=== PATIENT | female | born 1945 | race Caucasian/White ===

== ENCOUNTER 2024-01-14 23:45 | Inpatient (IN) | payer MEDICARE, SELFPAY ==
[2024-01-14 23:09] VITALS: BP 146/81
[2024-01-14 23:28] VITALS: BP 146/81; BMI 31.6
[2024-01-14 23:32] LABS: Hematocrit 18.9 % (37.0-47.0); Hemoglobin 5.6 g/dL (12.0-16.0); Mean Corp Hgb Conc. 29.6 g/dL (33.0-37.0); Mean Corpuscular Hgb 36.1 pg (27.0-31.0); Mean Corpuscular Volume 121.9 fL (81.0-99.0); Mean Platelet Volume 12.8 fL (7.4-10.4); Platelet Count 77 10^3/uL (130-400); Red Blood Cell Count 1.55 10^6/uL (4.20-5.40); Red Cell Dist. Width 19.4 % (11.5-14.5); White Blood Cell Count 1.9 10^3/uL (4.8-10.8)
[2024-01-14 23:48] LABS: ALT (SGPT) 14 U/L (0-35); AST (SGOT) 49 U/L (14-36); Albumin 3.7 g/dl (3.5-5.0); Alkaline Phosphatase 43 U/L (38-126); Blood Urea Nitrogen 19 mg/dl (7-17); Calcium 8.2 mg/dl (8.4-10.2); Carbon Dioxide 22 mmol/L (22-30); Chloride 110 mmol/L (98-107); Estimated Creatinine Clearance 50 ml/min; Glucose 90 mg/dl (70-99); Potassium 4.3 mmol/L (3.5-5.1); Sodium 138 mmol/L (135-145); Total Bilirubin 2.3 mg/dl (0.2-1.3); Total Protein 6.2 g/dl (6.3-8.2); eGFR > 60.00
--- NOTE | 2024-01-14 23:49 | HPS.HSE ---
Family Physician
-
Family Physician: Talat Del Angel DO
Chief Complaint
-
pancytopenia
History of Present Illness
78-year-old female past medical history of coronary artery disease status post CABG, moderate aortic insufficiency, hypertension, hypothyroidism, GERD, breast cancer status post radiation, presenting as a transfer from [facility] for
pancytopenia.
Patient was in her normal state of health and had routine blood work which showed pancytopenia and she was referred to the hospital. She went to [facility] but was transferred to [facility] because she follows with Dr. Champagne
due to history of breast cancer.
She denies any symptoms such as shortness of breath, chest pain, fatigue, dizziness, bruising. She does have hemorrhoidal bleeding at times which is well-controlled with laxative.
She denies smoking or alcohol use.
Medical History
Past Medical History
Past Medical History: Reports Other (coronary artery disease status post CABG, moderate aortic insufficiency, hypertension, hypothyroidism, GERD, breast cancer status post radiation)
Past Surgical History: Reports Other (Thyroidectomy, appendectomy, tonsillectomy, colon polyp removal, bilateral oophorectomy)
Social History
Tobacco: Non-smoker
Alcohol: None
Drug: None
Family History
Family History: Not pertinent
Allergies / Home Medications
Allergies reflects when Allergies were last updated in [employer].
Home Medications with original date entered in [employer]
Allergy/Medication List:
Allergies
Allergy/AdvReac Type Severity Reaction Status Date / Time
dipyridamole Allergy Mild Nausea / Verified 01/14/24 23:34
Vomiting
Home Medications
aspirin 81 mg chewable tablet 81 mg PO DAILY 04/16/16
atorvastatin 20 mg tablet 20 mg PO DAILY 04/16/16
metoprolol tartrate 25 mg tablet 12.5 mg PO BID 04/16/16
coenzyme Q10 100 mg capsule (Co Q-10) 100 mg PO DAILY 01/14/24
levothyroxine 100 mcg tablet 50 mcg PO LANDIS 01/14/24
levothyroxine 100 mcg tablet 100 mcg PO MOTUWETHFRSA 01/14/24
omeprazole 40 mg capsule,delayed release 40 mg PO HS 01/14/24
Review of Systems
-
History Source: Patient
A 12 point ROS was completed and negative except as noted: Yes
Constitutional: Reports No Symptoms
EENT: Reports No Symptoms
Respiratory: Reports No Symptoms
Cardiac: Reports No Symptoms
Abdomen/GI: Reports No Symptoms
: Reports No Symptoms
Musculoskeletal: Reports No Symptoms
Skin: Reports No Symptoms
Neurological: Reports No Symptoms
Endocrine: Reports No Symptoms
Hematologic/Lymphatic: Reports No Symptoms
Psych: Reports No Symptoms
Physical Exam
Vital Signs
Vital Signs
Temp Pulse Resp BP Pulse Ox
97.9 F 66 20 146/81 94
01/14/24 23:28 01/14/24 23:30 01/14/24 23:30 01/14/24 23:28 01/14/24 23:30
Physical Exam
General: Well Developed, Well Nourished and No Apparent Distress
HEENT: NormoCephalic, Moist mucous membranes and Atraumatic
Respiratory: Clear
Cardiac: S1/S2 and Regular Rhythm; No Murmur or Rub
GI: Soft, Non Tender, Non Distended and Normal Bowel Sounds; No Organomegaly
Rectal: Deferred by Provider
Musculoskeletal: No Clubbing, No Cyanosis and No Edema
Skin: No Rash
Neuro: Nonfocal/grossly intact
Laboratory Results
-
01/14/24 23:21
01/14/24 23:21
Laboratory Results
Total Bilirubin 2.3 mg/dl (0.2-1.3) H 01/14/24 23:21
AST 49 U/L (14-36) H 01/14/24 23:21
ALT 14 U/L (0-35) 01/14/24 23:21
Alkaline Phosphatase 43 U/L (38-126) 01/14/24 23:21
Data Reviewed
-
Lab Data: Labs Reviewed by me
Old Records: Reviewed
Impression/Plan
-
IMPRESSION:
PLAN:
# Asymptomatic pancytopenia likely due to underlying bone marrow process
-Hemoccult negative at [facility]
-White blood cell count of 1.8, hemoglobin of 5.8, platelets of 86 as per [facility] labs
-Repeat labs pending
-1 unit of blood as per hematology, ordered
-Will likely require bone marrow biopsy
History of hemorrhoids
Breast cancer status post radiation
Coronary artery disease status post CABG
-Continue aspirin, statin
Moderate aortic insufficiency
Essential hypertension
-Continue metoprolol
Hypothyroidism
-Continue levothyroxine
GERD
-Continue omeprazole
DNR/DNI
DVT prophylaxis�SCDs
Regular diet
--- NOTE | 2024-01-14 23:56 | EDRN ---
Patient ambulated into the restroom with use of cane, back in bed with lights turned down and put tv on for patient.
[2024-01-15] VITALS (13 sets, daily range): BP systolic 113–162; BP diastolic 48–72; BMI 29.5
[2024-01-15 00:24] LABS: % Monocytes 6.7 % (1.7-9.3); % Neutrophils 26.3 % (42.2-75.2); Absolute Lymphocytes 1.3 10^3/uL (1.2-3.4); Absolute Monocytes 0.1 10^3/uL (0.1-0.6); Absolute Neutrophils 0.5 10^3/uL (1.4-6.5); Anisocytosis 1+; Normal RBC Morphology No; Nucleated Red Blood Cells % 2.1 %
[2024-01-15 00:33] LABS: Hypochromasia 2+; Macrocytosis 2+
[2024-01-15 00:34] LABS: Basophilic Stippling Occasional; Ovalocytes 1+; Polychromasia 1+; Stomatocytes 1+; Target Cells 1+; Tear Drop Red Blood Cells Occasional
--- NOTE | 2024-01-15 03:44 | PTCARENOTE ---
Pt arrived to [facility] from ED on a stretcher at 0125. Pt ambulated to the balanced standing scale and to bed with a cane and assistance of 1. 1 unit of PRBC's will be transfused for a hemoglobin of 5.6. Pt oriented to call peng and room. Pt denies
pain.
--- NOTE | 2024-01-15 05:42 | PTCARENOTE ---
1 unit of PRBC's infused without incident (start 02:26, end 05:30). VSS.
[2024-01-15] MEDS: SYNTHROID 100 MCG PO (06:16)
--- NOTE | 2024-01-15 06:20 | CON.ONC ---
Impression
Impression
Asymptomatic pancytopenia
Macrocytosis
Breast cancer status post radiation
Coronary artery disease status post CABG
Plan
Plan
Transfuse to obtain HgB > 7.5.
B12/Fol normal - checked as outpt.
Needs BMBx. As policy is no inpt BMBx, will set up as outpt with close F/U Dr. Champagne shortly.
Suspect MDS based on time course and macrocytosis.
Await F/U CBC post transfusion (1 u PRBC). Discharge with outpt F/U.
Patient History
History of Present Illness
Family Physician: Talat Del Angel DO
CC: pancytopenia
HPI: 78-year-old female who was in her normal state of health and had routine blood work which showed pancytopenia and she was referred to the hospital. She went to [facility] but was transferred to [facility] because she follows
with mason Champagne due to history of breast cancer. She denies infectious, shortness of breath, chest pain, fatigue, dizziness, bruising or bleeding symptoms. Was noted to have pancytopenia on 01/2023 but canceled follow up and never rescheduled.
Poor historian.
Past-Medical/Surgical History
D
She denies smoking or alcohol use.
PMH: coronary artery disease status post CABG, moderate aortic insufficiency, hypertension, hypothyroidism, GERD, Stage I breast cancer status post radiation
PSH: Thyroidectomy, appendectomy, tonsillectomy, colon polyp removal, bilateral oophorectomy
Social History
Tobacco: Non-smoker
Alcohol: None
Drug: None
Family History
Family History: Not pertinent
Patient Medication
�Medication �Instructions �Recorded �Confirmed �Last Taken �Type
aspirin 81 mg chewable tablet 81 mg PO DAILY 04/16/16 01/14/24 01/14/24 History
atorvastatin 20 mg tablet 20 mg PO DAILY 04/16/16 01/14/24 01/13/24 History
metoprolol tartrate 25 mg tablet 12.5 mg PO BID 04/16/16 01/14/24 01/14/24 History
coenzyme Q10 100 mg capsule (Co 100 mg PO DAILY 01/14/24 01/14/24 01/14/24 History
Q-10)
levothyroxine 100 mcg tablet 50 mcg PO LANDIS 01/14/24 01/14/24 01/12/24 History
levothyroxine 100 mcg tablet 100 mcg PO MOTUWETHFRSA 01/14/24 01/14/24 01/14/24 History
omeprazole 40 mg capsule,delayed 40 mg PO HS 01/14/24 01/14/24 01/13/24 History
release
Active Medications
Generic Name Dose Route Start Last Admin
Trade Name Freq PRN Reason Stop Dose Admin
Aspirin 81 mg 01/15/24 08:00
Aspirin 81 Mg Chewable Tablet PO 02/12/24 07:59
DAILY VLADIMIR
Atorvastatin Calcium 20 mg 01/15/24 08:00
Atorvastatin (Lipitor) 20 Mg Tablet PO 02/12/24 07:59
DAILY VLADIMIR
Levothyroxine Sodium 50 mcg 01/19/24 06:00
Levothyroxine 50 Mcg Tablet PO 02/16/24 05:59
LANDIS@0600 VLADIMIR
Levothyroxine Sodium 100 mcg 01/15/24 06:00
Levothyroxine 100 Mcg Tablet PO 02/12/24 05:59
MoTuWeThFrSa@0600 VLADIMIR
Metoprolol Tartrate 12.5 mg 01/15/24 08:00
Metoprolol 12.5 Mg Regular Release Dose (1/2 Of 25 Mg Tablet) PO 02/12/24 07:59
BID VLADIMIR
Pantoprazole Sodium 40 mg 01/15/24 22:00
Pantoprazole 40 Mg Delayed Release Tablet PO 02/12/24 21:59
HS VLADIMIR
Sodium Chloride 0 flush 01/15/24 02:00
Sodium Chloride 0.9% (Flush) Syringe IV 02/12/24 01:59
PER PROTOCOL VLADIMIR
Physical Exam
-
General: Well Developed, No Apparent Distress and Comfortable
HEENT: Negative Jaundice
Cardiology: Normal Sinus Rhythm, S1 and S2
Pulmonary: Clear
GI: Soft and Normal Bowel Sounds
Extremities: No C/C/E
Neurology: Non Focal
Labs
Lab Results
WBC 1.9 10^3/uL (4.8-10.8) L* 01/14/24 23:21
RBC 1.55 10^6/uL (4.20-5.40) L 01/14/24 23:21
Hgb 5.6 g/dL (12.0-16.0) L* 01/14/24 23:21
Hct 18.9 % (37.0-47.0) L* 01/14/24 23:21
MCV 121.9 fL (81.0-99.0) H 01/14/24 23:21
MCH 36.1 pg (27.0-31.0) H 01/14/24 23:21
MCHC 29.6 g/dL (33.0-37.0) L 01/14/24 23:21
RDW 19.4 % (11.5-14.5) H 01/14/24 23:21
Plt Count 77 10^3/uL (130-400) L 01/14/24 23:21
MPV 12.8 fL (7.4-10.4) H 01/14/24 23:21
Abs Immat Gran (auto) 0.0 10^3/uL (0-0.05) 01/14/24 23:21
Absolute Neuts (auto) 0.5 10^3/uL (1.4-6.5) L* 01/14/24 23:21
Absolute Lymphs (auto) 1.3 10^3/uL (1.2-3.4) 01/14/24 23:21
Absolute Monos (auto) 0.1 10^3/uL (0.1-0.6) 01/14/24 23:21
Absolute Eos (auto) 0.0 10^3/uL (0-0.7) 01/14/24 23:21
Absolute Basos (auto) 0.0 10^3/uL (0-0.2) 01/14/24 23:21
Immature Gran % 1.0 % (0-0.5) H 01/14/24 23:21
Neutrophils % 26.3 % (42.2-75.2) L 01/14/24 23:21
Lymphocytes % 66.0 % (20.5-51.1) H 01/14/24 23:21
Monocytes % 6.7 % (1.7-9.3) 01/14/24 23:21
Eosinophils % 0.0 % (0-6) 01/14/24 23:21
Basophils % 0.0 % (0-2) 01/14/24 23:21
Creatinine 0.8 mg/dL (0.6-1.0) 01/14/24 23:21
Vital Signs
Vital Signs
Temp Pulse Resp BP Pulse Ox
98 F 69 18 155/54 96
01/15/24 05:30 01/15/24 05:30 01/15/24 05:30 01/15/24 05:30 01/15/24 02:45
[2024-01-15 07:06] LABS: Hematocrit 21.8 % (37.0-47.0); Hemoglobin 6.6 g/dL (12.0-16.0); Mean Corp Hgb Conc. 30.3 g/dL (33.0-37.0); Mean Corpuscular Volume 112.4 fL (81.0-99.0); Mean Platelet Volume 11.8 fL (7.4-10.4); Platelet Count 74 10^3/uL (130-400); Red Blood Cell Count 1.94 10^6/uL (4.20-5.40); Red Cell Dist. Width 24.5 % (11.5-14.5)
[2024-01-15 07:24] LABS: ALT (SGPT) 13 U/L (0-35); AST (SGOT) 30 U/L (14-36); Albumin 3.7 g/dl (3.5-5.0); Alkaline Phosphatase 49 U/L (38-126); Blood Urea Nitrogen 17 mg/dl (7-17); Calcium 8.4 mg/dl (8.4-10.2); Carbon Dioxide 25 mmol/L (22-30); Chloride 109 mmol/L (98-107); Estimated Creatinine Clearance 50 ml/min; Glucose 89 mg/dl (70-99); Potassium 3.8 mmol/L (3.5-5.1); Sodium 140 mmol/L (135-145); Total Bilirubin 2.7 mg/dl (0.2-1.3); eGFR > 60.00
[2024-01-15] MEDS: LIPITOR 20 MG PO (07:27)
[2024-01-15] MEDS: LOW STRENGTH ASPIRIN 81 MG PO (07:27)
[2024-01-15 07:29] LABS: % Immature Granulocytes 5.1 % (0-0.5); % Lymphocytes 63.6 % (20.5-51.1); % Monocytes 7.6 % (1.7-9.3); % Neutrophils 23.7 % (42.2-75.2); Absolute Immature Granulocytes 0.1 10^3/uL (0-0.05); Absolute Lymphocytes 1.3 10^3/uL (1.2-3.4); Absolute Monocytes 0.2 10^3/uL (0.1-0.6); Absolute Neutrophils 0.5 10^3/uL (1.4-6.5); Nucleated Red Blood Cells % 2.5 %
[2024-01-15] MEDS: LOPRESSOR 12.5 MG PO ×2 (07:30→19:21)
[2024-01-15 08:31] LABS: Folate > 20.0 ng/ml (2.76-20); Vitamin B12 > 1000 pg/ml (239-931)
--- NOTE | 2024-01-15 11:56 | CM ---
Reviewed the chart notes and spoke with the patient at the bedside. The patient is a transfer from [facility]. The patient resides alone in a first floor apartment with four steps to enter with hand rail. The patient reports
having a cane and shower rail. The patient reports no VN in past, but did go to the [facility] ([facility]) in the past. The patient confirmed her pharmacy of choice is the [facility]. continues to be
available to patient/family and is monitoring medical plan for needs at discharge.
Plan: Discharge to home when medically stable. No needs anticipated at this time.
--- NOTE | 2024-01-15 12:25 | W.PN.HOSP.TC ---
Today's Communication/Plan
-
Transfuse second unit PRBC
Repeat CBC in the afternoon
Encourage oral intake/nutrition
Assessment / Plan
Assessment / Plan
#Asymptomatic Pancytopenia -- high suspicion for myelodysplastic syndrome due to timing, macrocytosis
#Neutropenic -- ANC 500 x 2 days
#Transfusion dependent macrocytic anemia
-Initially presented to [facility] with WBC 1.8, hemoglobin 5.8, platelet 86; MCV elevated
-Repeat labs here after transfer were along the same magnitude of deficiency; Hemoccult negative
-After 1 unit of PRBC given in the ED; hemoglobin this morning was 6.6, MCV down from 121-112
-Additional unit of PBC ordered and running now, s/p 2 units PRBC in total today
-Has remained hemodynamically stable, without any obvious symptoms
Plan
-Repeat CBC in the afternoon, transfuse for hemoglobin goal >7.5
-Will continue to monitor CBC daily until stable
-Plan for outpatient bone marrow biopsy and cytogenetic studies
-Continue with neutropenic precautions, monitor for fevers
-Follow-up SPEP, serological studies
#Hyperbilirubinemia
-LFTs are stable/normalized, suspect this is secondary to red cell breakdown and MDS
-See above for more detail
#CAD s/p CABG
-Performed in 2002, ELSA and radial�OM1
-Home regimen includes beta-edwin, aspirin, statin
-No signs of coronary ischemia at this time
-Risks for CAD of grafts is high due to time from CABG
#Aortic stenosis
-No records on file, patient states she has known aortic stenosis
-Murmur sounds severe with late systolic peak, carotid up stroke nondelayed
-Will need to follow-up with cardiology after discharge for ongoing monitoring
#Essential hypertension
-Home medications include low-dose metoprolol tartrate
-No known history of hypertensive cardiovascular disease
-BP is adequate for hospital stay, will monitor while here
#Hypothyroid
-Unclear etiology, home regimen includes levothyroxine 50 mcg Sun, 100 mcg other days
-No signs or symptoms of thyroid irregularity on this admission
#GERD
-Chronic, well-controlled with daily PPI
-No known Meza's esophagus or erosive disease
-No red flag symptoms here
#History of hemorrhoids
-Hemoccult negative, denies rectal bleeding
#Breast cancer status post radiation
-Question if radiation could be contributing to MDS
CODE STATUS: DNR/DNI
DVT prophylaxis: SCDs
Diet: Regular diet, neutropenic
Anticipated Discharge: 24 - 48 hours
Subjective/Interval History
-
Date of Service: January 15, 2024
Seen and examined in the bed. No acute events, CBC showed hemoglobin 6.6 this morning after 1 unit of blood. Ordered a subsequent unit of blood for now, plan for CBC near 5 PM today to reassess.
She otherwise states she feels well, improved from time she first presented to the hospital. Denies any chest pain or shortness of breath. Denies fevers or chills.
Objective Data
-
Labs:
Laboratory Results
01/15/24 01/15/24
06:38 17:00
WBC 2.0 L* Pending
Hgb 6.6 L* Pending
Hct 21.8 L Pending
Plt Count 74 L Pending
Sodium 140
Potassium 3.8
Chloride 109 H
Carbon Dioxide 25
BUN 17
Creatinine 0.8
Glucose 89
Calcium 8.4
Total Bilirubin 2.7 H
AST 30
ALT 13
Alkaline Phosphatase 49
Vital Signs:
Vital Signs
Temp Pulse Resp BP Pulse Ox
98 F 67 14 159/57 97
01/15/24 12:00 01/15/24 12:00 01/15/24 12:00 01/15/24 12:00 01/15/24 12:00
I&O
01/14/24 01/15/24 01/16/24
06:59 06:59 06:59
Intake Total 730 / 730 500 / 500
Balance 730 / 730 500 / 500
Review of Systems
-
History Source: Patient
Constitutional: Reports No Appetite and Fatigue; Denies Fever, Night Sweats or Chills
Respiratory: Reports No Symptoms
Cardiac: Reports No Symptoms
Abdomen/GI: Reports No Symptoms; Denies Bloody Stools or Black Stools
Genitourinary: Reports No Symptoms
Musculoskeletal: Reports No Symptoms
Skin: Reports No Symptoms
Neuro: Reports No Symptoms
Endocrine: Reports No Symptoms
Hematologic / Lymphatic: Reports Bruising; Denies Bleeding
Physical Exam
-
General: Well Nourished, No Apparent Distress, Comfortable, Conversant and Other (Frail-appearing female)
HEENT: Normocephalic, Atraumatic and Moist Mucous Membranes
Respiratory: Clear to Auscultation and Non Labored Respirations
Cardiac: Regular Rhythm, S1/S2 and Murmur (Late peaking systolic across precordium); Negative Rub or Gallop
GI: Soft, Nontender, Nondistended and Normal Bowel Sounds
Musculoskeletal: No Clubbing, No Cyanosis and No Edema
Skin: Warm, Dry and Other (Ecchymoses along extremities, reduced skin turgor); Negative Rash
Neuro: AO x 3, Nonfocal/Grossly Intact and Central Nerve's Intact
Data Reviewed
-
Labs: Labs Reviewed by me and Discussed with Patient
[2024-01-15 12:47] LABS: Hepatitis C Antibody Negative (Negative)
[2024-01-15 17:26] LABS: Hematocrit 26.4 % (37.0-47.0); Hemoglobin 8.3 g/dL (12.0-16.0); Mean Corp Hgb Conc. 31.4 g/dL (33.0-37.0); Mean Corpuscular Hgb 33.3 pg (27.0-31.0); Mean Platelet Volume 12.1 fL (7.4-10.4); Platelet Count 70 10^3/uL (130-400); Red Blood Cell Count 2.49 10^6/uL (4.20-5.40); Red Cell Dist. Width 26.3 % (11.5-14.5); White Blood Cell Count 2.1 10^3/uL (4.8-10.8)
[2024-01-15] MEDS: PROTONIX 40 MG PO (22:12)
[2024-01-16 03:15] VITALS: BP 169/59
--- NOTE | 2024-01-16 04:03 | PTCARENOTE ---
ax3 poc discussed-hr irregular +1 ankle edema. 96% on room air lungs are clear. scattered bruising on arms noted.
[2024-01-16] MEDS: SYNTHROID 100 MCG PO (05:25)
[2024-01-16 07:04] VITALS: BP 159/53
[2024-01-16] MEDS: LIPITOR 20 MG PO (07:28)
[2024-01-16] MEDS: LOPRESSOR 12.5 MG PO (07:28)
[2024-01-16] MEDS: LOW STRENGTH ASPIRIN 81 MG PO (07:28)
[2024-01-16 08:49] LABS: Hematocrit 26.1 % (37.0-47.0); Hemoglobin 8.4 g/dL (12.0-16.0); Mean Corp Hgb Conc. 32.2 g/dL (33.0-37.0); Mean Corpuscular Hgb 34.1 pg (27.0-31.0); Mean Corpuscular Volume 106.1 fL (81.0-99.0); Mean Platelet Volume 12.5 fL (7.4-10.4); Platelet Count 66 10^3/uL (130-400); Red Blood Cell Count 2.46 10^6/uL (4.20-5.40); Red Cell Dist. Width 24.9 % (11.5-14.5); White Blood Cell Count 2.8 10^3/uL (4.8-10.8)
[2024-01-16 09:04] LABS: Blood Urea Nitrogen 19 mg/dl (7-17); Calcium 8.8 mg/dl (8.4-10.2); Carbon Dioxide 23 mmol/L (22-30); Chloride 107 mmol/L (98-107); Estimated Creatinine Clearance 50 ml/min; Glucose 86 mg/dl (70-99); Sodium 138 mmol/L (135-145); eGFR > 60.00
[2024-01-16 09:09] LABS: % Basophils 0.7 % (0-2); % Eosinophils 0.4 % (0-6); % Immature Granulocytes 5.4 % (0-0.5); % Lymphocytes 37.8 % (20.5-51.1); % Monocytes 10.8 % (1.7-9.3); % Neutrophils 44.9 % (42.2-75.2); Absolute Immature Granulocytes 0.2 10^3/uL (0-0.05); Absolute Lymphocytes 1.1 10^3/uL (1.2-3.4); Absolute Monocytes 0.3 10^3/uL (0.1-0.6); Absolute Neutrophils 1.3 10^3/uL (1.4-6.5); Nucleated Red Blood Cells % 2.2 %
--- NOTE | 2024-01-16 11:26 | W.PN.HOSP.TC ---
Today's Communication/Plan
-
Follow-up CBC
Discharge for outpatient bone marrow biopsy with hematology
Assessment / Plan
Assessment / Plan
#Asymptomatic Pancytopenia -- high suspicion for myelodysplastic syndrome due to timing, macrocytosis
#Neutropenic -- ANC 500 x 2 days
#Transfusion dependent macrocytic anemia
-Initially presented to [facility] with WBC 1.8, hemoglobin 5.8, platelet 86; MCV elevated
-Repeat labs here after transfer were along the same magnitude of deficiency; Hemoccult negative
-After 1 unit of PRBC given in the ED; hemoglobin this morning was 6.6, MCV down from 121-112
-Status post 2 units PRBC with adequate response, hemoglobin 8.4 x 2 following transfusion
-Has remained hemodynamically stable, without any obvious symptoms
-Plan to [facility] today for hematology follow-up and bone marrow biopsy with cytogenetic studies
#Hyperbilirubinemia
-LFTs are stable/normalized, suspect this is secondary to red cell breakdown and MDS
-See above for more detail
#CAD s/p CABG
-Performed in 2002, ELSA and Rosmery1
-Home regimen includes beta-edwin, aspirin, statin
-No signs of coronary ischemia at this time
-Risks for CAD of grafts is high due to time from CABG
#Aortic stenosis
-No records on file, patient states she has known aortic stenosis
-Murmur sounds severe with late systolic peak, carotid up stroke nondelayed
-Will need to follow-up with cardiology after discharge for ongoing monitoring
#Essential hypertension
-Home medications include low-dose metoprolol tartrate
-No known history of hypertensive cardiovascular disease
-BP is adequate for hospital stay, will monitor while here
#Hypothyroid
-Unclear etiology, home regimen includes levothyroxine 50 mcg Sun, 100 mcg other days
-No signs or symptoms of thyroid irregularity on this admission
#GERD
-Chronic, well-controlled with daily PPI
-No known Meza's esophagus or erosive disease
-No red flag symptoms here
#History of hemorrhoids
-Hemoccult negative, denies rectal bleeding
#Breast cancer status post radiation
-Question if radiation could be contributing to MDS
CODE STATUS: DNR/DNI
DVT prophylaxis: SCDs
Diet: Regular diet, neutropenic
Anticipated Discharge: Today
Subjective/Interval History
-
Date of Service: January 16, 2024
Seen and examined while sitting in the chair. Had just finished breakfast, states she feels well and wants to leave the hospital. Hemoglobin this morning returned at 8.4, stable from yesterday. She denies any chest pain, shortness of breath,
fevers or chills, nausea, vomiting, diarrhea, urinary issues, abnormal bleeding or bruising today.
Objective Data
-
Labs:
Laboratory Results
01/16/24
07:24
WBC 2.8 L
Hgb 8.4 L
Hct 26.1 L
Plt Count 66 L
Sodium 138
Potassium 4.0
Chloride 107
Carbon Dioxide 23
BUN 19 H
Creatinine 0.8
Glucose 86
Calcium 8.8
Vital Signs:
Vital Signs
Temp Pulse Resp BP Pulse Ox
97.6 F 69 14 159/53 96
01/16/24 07:04 01/16/24 07:28 01/16/24 07:04 01/16/24 07:28 01/16/24 07:04
I&O
01/15/24 01/16/24 01/17/24
06:59 06:59 06:59
Intake Total 730 / 730 1460 / 1460
Balance 730 / 730 1460 / 1460
Review of Systems
-
History Source: Patient
All other systems: Reviewed and negative
Physical Exam
-
General: Well Nourished, No Apparent Distress and Comfortable
HEENT: Normocephalic, Atraumatic, Moist Mucous Membranes and Anicteric
Respiratory: Clear to Auscultation and Non Labored Respirations
Cardiac: Regular Rhythm, S1/S2 and Murmur (3/6 ROBSON RUSB); Negative Rub or Gallop
GI: Soft, Nontender, Nondistended and Normal Bowel Sounds
Musculoskeletal: No Clubbing, No Cyanosis and No Edema
Skin: Warm, Dry and Other (Ecchymoses on the extremities); Negative Rash
Neuro: AO x 3, Nonfocal/Grossly Intact and Central Nerve's Intact
Hematologic / Lymphatic: No Lymphadenopathy
Data Reviewed
-
Labs: Labs Reviewed by me and Discussed with Patient
--- NOTE | 2024-01-16 11:33 | W.DCSUMMARY ---
Discharge Summary
Discharge Data
Date of Admission: 01/14/24
Date of Discharge: 01/16/24
-
Pending Results: No
Additional Pending Results:
To follow-up with hematology for bone marrow biopsy and cytogenetic analysis
Hospital Course
Presented to the hospital after outpatient labs showed new pancytopenia. Seen by hematology, suspicion for myelodysplastic syndrome in the context of macrocytosis and the progressive timeframe in which her blood counts dropped, with labs being near
normal 1 year prior. Recommended for outpatient bone marrow biopsy and cytogenetic studies. Was given 2 units PRBC while in the hospital with hemoglobin improvement from 5.8-8.4. Trended CBC to ensure stability, no signs of bleeding during
hospitalization. Discharged with follow-up scheduled with table games floor supervisor in office for bone marrow biopsy. Advised her to return to the ED if she developed any new bleeding or signs of fevers or chills. She was on neutropenic precautions throughout
hospitalization
Discharge Plan
-
Patient Disposition: Home (Routine Discharge)
Discharge Diagnosis/Procedures: Pancytopenia
Presumed myelodysplastic syndrome
Condition: Fair
Diet: No restrictions
Activity: No restrictions
Driving Restrictions: As prior to admission
Blood Work: Follow-up with hematology for repeat CBC
Others Tests: Bone marrow biopsy, cytogenetic analysis to be performed by table games floor supervisor
Activity Restrictions/Additional Instructions:
If you develop any dark black stools or signs of new bleeding (from the GI tract, urinary tract, elsewhere) call your PCP or go to the emergency department
If you develop fevers or signs of infection call table games floor supervisor or PCP immediately
Instructions: Myelodysplastic syndromes (MDS)
Referrals:
Talat Del Angel DO [Family Provider] -
Slim Champagne DO [Active] - in two to three days
Additional Discharge Medication Instructions: No medication changes made
Prescriptions:
Continued
atorvastatin 20 MG tablet
20 mg PO DAILY
aspirin 81 MG tablet,chewable
81 mg PO DAILY
metoprolol tartrate 25 MG tablet
12.5 mg PO BID
omeprazole 40 mg capsule,delayed release(DR/EC)
40 mg PO HS
levothyroxine 100 mcg tablet
50 mcg PO LANDIS
levothyroxine 100 mcg tablet
100 mcg PO MOTUWETHFRSA
coenzyme Q10 [Co Q-10] 100 mg Capsule
100 mg PO DAILY
Discharge Orders:
Discharge Patient (As Directed); Ordered 01/16/24
Ordered By: Severo Wood
Discharge Date and Time
Print Language: SINHALA
[2024-01-16 11:53] VITALS: BP 119/55
--- NOTE | 2024-01-16 15:10 | CM ---
met with patient who is stable for dc home with no needs.patient signed imm letter.family to transport home.
[2024-01-18 04:42] LABS: Albumin 3.53 g/dL (3.75-5.01); Alpha 1 Globulin 0.29 g/dL (0.19-0.46); Alpha 2 Globulin 0.54 g/dL (0.48-1.05); Free Kappa Light Chains,Quant 28.49 mg/L (3.30-19.40); IgA 209 mg/dL (68-408); IgG 779 mg/dL (768-1632); IgM 214 mg/dL (35-263); Immunofixation Electrophoresis IFE Done; Kappa/Lambda Fr Light Ratio 0.92 (0.26-1.65)
== END 2024-01-16 14:11 | disposition home or self-care (01) | DRG 812 ==
LOC: 2 SOUTH 23:45
PROVIDERS: Emergency Medicine; ADMITTING PHYSICIAN Hospitalist; ATTENDING PHYSICIAN Internal Medicine; FAMILY PHYSICIAN Student in an Organized Health Care Education/Training Program; OTHER PHYSICIAN Internal Medicine Hematology & Oncology
PROC: 30233N1 Transfusion of Nonautologous Red Blood Cells into Peripheral Vein, Percutaneous Approach (ICD-10-PCS; 2024-01-15)
DX: D46.9 Myelodysplastic syndrome, unspecified (principal); D61.818 Other pancytopenia; D75.89 Other specified diseases of blood and blood-forming organs; Z92.3 Personal history of irradiation; C50.919 Malignant neoplasm of unspecified site of unspecified female breast; I25.10 Atherosclerotic heart disease of native coronary artery without angina pectoris; Z95.1 Presence of aortocoronary bypass graft; I10 Essential (primary) hypertension; E89.0 Postprocedural hypothyroidism; K21.9 Gastro-esophageal reflux disease without esophagitis; Z66 Do not resuscitate
CPT/HCPCS: 80048; 80053; 82607; 82746; 82784; 83521; 84155; 84165; 85025; 85027; 86334; 86803; 86850; 86900; 86901; 86920; 87070; 99285; P9016

== ENCOUNTER 2024-04-10 19:47 | Inpatient (IN) | payer MEDICARE, OTHER, SELFPAY ==
[2024-04-10] VITALS (12 sets, daily range): BP systolic 104–143; BP diastolic 39–56; BMI 25.5
--- NOTE | 2024-04-10 14:28 | ED.GENMED ---
History of Present Illness
General
Chief Complaint: Dehydration Symptoms
Source: family
Exam Limitations: none
Time Seen by Provider: 04/10/24 13:56
Nursing documentation reviewed up to this point in time: agreed with
History of Present Illness
History of Present Illness:
78 yr. old female with history of ' blood cancer,' possible MDS, CAD hypertension hyperlipidemia sent by Dr Champagne for evaluation. Sister reports patient is very weak not eating lost over 30 pounds in the past month.
Daughter reports patient was hospitalized at [facility] several weeks ago her last chemo was also several weeks ago however presently she is in [facility]. They saw Dr. Champagne today.
Review of Systems
Review of Systems
Allergies reviewed?: Yes
Other source history: family
All Other Systems: ROS reviewed and negative except as documented in HPI and ROS
Constitutional: Reports weight loss and fatigue; Denies fever or chills
EENT: Reports no symptoms
Respiratory: Reports no symptoms; Denies trouble breathing
Cardiac: Reports no symptoms
ABD/GI: Reports anorexia
: Reports no symptoms
Musculoskeletal: Reports no symptoms
Skin: Reports no symptoms
Neurological: Reports no symptoms
Psychiatric: Reports no symptoms
Phy Exam
General Physical Exam
General Presentation: no apparent distress
General age: appears stated age
General Skin: warm and dry
General Habitus: elderly
General Mental: alert
General Hydration: dry mucous membranes
Cardiovascular Exam
Cardiovascular Exam: regular rate/rhythm, no murmur and normal peripheral pulses
Pulmonary Exam
Pulmonary Exam: lungs clear and no respiratory distress
Neurological Exam
Neurological Exam: alert
Musculoskeletal Exam
Musculoskeletal Exam: full ROM
Skin Exam
Skin Exam: normal color and warm/dry
Course
Orders/Labs/Results
Orders:
Orders
04/10/24 14:26
IV Insert/Care/Rem.- Treatment PRN
04/10/24 14:35
Basic Metabolic Panel Urgent
Complete Blood Count/With Diff Urgent
04/10/24 14:37
Straight cath- Treatment ONCE
04/10/24 14:43
UA Reflex to Culture [Urinalysis Reflex To Culture] Urgent
Date Specimen was Collected: 04/10/24
Time Specimen was Collected: 14:42
Urine Microscopic Reflex Cult Urgent
Urine Sodium Urgent
Date Specimen was Collected: 04/10/24
Time Specimen was Collected: 14:42
Comment: ADD ON
04/10/24 17:21
Add On- LAB Urgent
Tests Added?: urine sodium, serum sodium serum osmolality
04/10/24 17:24
0.9% Sodium Chloride 500 ml [Nss] 500 ml IV BOLUS
04/10/24 17:40
Electrocardiogram (*1) Stat
Reason for Study: Other
Other Reason for Exam: chest pain
EKG- Treatment ONCE
04/10/24 18:06
Lipase Urgent
Comment: ADD ON
Cyjey-Vupz-Lptemei Urgent
Comment: ADD ON
Potassium Urgent
Serum Osmolality Urgent
Comment: ADD ON
Sodium Urgent
Comment: ADD ON
04/10/24 18:59
Admit/Transfer Patient As Directed
Co-Sign Provider:
Level of Care: Inpatient admission
Assign to:: IMU- Intermediate Care
Physician / Group: Amado Cuevas
Diagnosis: Possible Symptomatic Hyponatremia
Reason for Hospitalization: Possible Symptomatic Hyponatremia
Expected length of stay greater than two midnights?: Yes
ELOS- Estimated Length of Stay in days: 2
I certify the patient meets the requirements for IP care: Yes
04/10/24 19:00
0.9% Sodium Chloride 1000 ml [Nss] 1,000 ml IV 60 mls/hr
PRN Pain Medication Management As Directed
May give lesser potent ordered pain med per pt: Yes
preference::
Protocol:: Medication orders for pain may be administered in a
manner that supports deferring to patient preference
when the pt is:
- Requesting an ordered lesser potent pain medication.
Least to most potent pain medications are defined
as: acetaminophen < NSAID < tramadol < opioids
(morphine, oxycodone, hydromorphone).
- Requesting a lesser dose of the same medication IF
ORDERED.
- Requesting a less intrusive route of administration
if both routes are prescribed by the provider (PO <
IV).
04/10/24 19:07
Code Status As Directed
Resuscitation Status: Full Code
04/10/24 19:14
Add On- LAB Routine
Tests Added?: LFTs and Lipase
Records Request [Obtain Records] As Directed
Dates of Information to be Released: recent hospitalization [place]
Type of Information Requested: Entire Record
04/10/24 20:37
Type+Screen Routine
Lactic Acid Routine
Troponin I Routine
Venous Blood Gas Routine
%Oxygen/Room Air: 92
Abnormal Lab Results
04/10/24 04/10/24 04/10/24
14:35 14:43 18:06
RBC 2.59 L 10^6/uL
(4.20-5.40)
Hgb 7.7 L g/dL
(12.0-16.0)
Hct 24.6 L %
(37.0-47.0)
MCHC 31.3 L g/dL
(33.0-37.0)
RDW 21.1 H %
(11.5-14.5)
MPV 10.7 H fL
(7.4-10.4)
Abs Immat Gran (auto) 0.5 H 10^3/uL
(0-0.05)
Absolute Lymphs (auto) 0.7 L 10^3/uL
(1.2-3.4)
Immature Gran % 6.6 H %
(0-0.5)
Lymphocytes % 10.9 L %
(20.5-51.1)
Sodium 127 L mmol/L 128 L mmol/L
(135-145) (135-145)
Chloride 94 L mmol/L
(98-107)
BUN 20 H mg/dl
(7-17)
Creatinine 0.5 L mg/dL
(0.6-1.0)
Serum Osmolality 269 L mOsm/kg
(275-300)
Calcium 8.1 L mg/dl
(8.4-10.2)
Total Bilirubin 1.7 H mg/dl
(0.2-1.3)
AST 37 H U/L
(14-36)
Total Protein 6.1 L g/dl
(6.3-8.2)
Albumin 3.0 L g/dl
(3.5-5.0)
Urine Ketones 2+ A
(Negative)
Urine Bilirubin 1+ A
(Negative)
Leukocyte Esterase Rfl Trace A
(Negative)
Urine Bacteria (Reflex) Few A
(Negative)
04/10/24 14:35
04/10/24 18:06
Vital Signs
Initial and Last Documented VS:
Initial Vital Signs
Temp Pulse Resp BP Pulse Ox
98.1 F 84 16 104/56 95
04/10/24 12:46 04/10/24 12:46 04/10/24 12:46 04/10/24 12:46 04/10/24 12:46
Last Documented Vital Signs
Temp Pulse Resp BP Pulse Ox
98.1 F 88 24 118/45 96
04/10/24 12:46 04/10/24 20:30 04/10/24 20:30 04/10/24 20:00 04/10/24 20:30
MDM/Problems Addressed
Differential Diagnosis Includes:
not limited to: Dehydration electrolyte abnormality, infection
MDM/Problems Addressed:
Patient is a 78-year male with history of MDS followed by [facility] presented presents to the ER for worsening weakness. Sister reports patient has had weight loss not eating sent by [facility]. Patient denies any fever she is afebrile
white count normal hemoglobin low at 7.7 which is decreased from 8.4 on January 15. Patient's sodium however found to be 127.. Pt ordered small fluid bolus. will order specific sodium labs will require mission for weakness and hyponatremia
*Critical Care Note
Total Time (30-74mins, 75-104mins- exclusive of procedures): Not Applicable
ED Attending Note
-
Portions of this chart may have been created with voice recognition software.� Occasional wrong word or��sound alike� substitutions may have occurred due to the inherent limitations of voice recognition software.
Discharge Plan
Departure
Patient Disposition: Admit
Date of Disposition: 04/10/24
Time of Disposition: 17:37
Admit to: Med/Surg
Admit to doctor: hospitalist
Presentation/result/management discussed w/ accepting MD/DO: Hospitalist
Patient with high blood pressure during this ER visit?: Yes
Condition: Fair
Covid-19: Not Applicable
Discharge Problem:
Acute hyponatremia, Weakness, Anemia
Interventions
Interventions:
*Risk Screen - Suicide Last Done: 04/10/24 12:48
*Neglect/Abuse Screening Last Done: 04/10/24 12:48
ED- Cardiac Assessment Last Done: 04/10/24 13:55
ED- Neurological Assessment Last Done: 04/10/24 13:55
ED- Pulmonary Assessment Last Done: 04/10/24 13:55
[2024-04-10 15:31] LABS: Blood Urea Nitrogen 20 mg/dl (7-17); Calcium 8.1 mg/dl (8.4-10.2); Carbon Dioxide 24 mmol/L (22-30); Chloride 94 mmol/L (98-107); Glucose 94 mg/dl (70-99); Sodium 127 mmol/L (135-145); eGFR > 60.00
[2024-04-10 15:38] LABS: % Basophils 0.6 % (0-2); % Eosinophils 0.1 % (0-6); % Immature Granulocytes 6.6 % (0-0.5); % Lymphocytes 10.9 % (20.5-51.1); % Neutrophils 74.8 % (42.2-75.2); Absolute Immature Granulocytes 0.5 10^3/uL (0-0.05); Absolute Lymphocytes 0.7 10^3/uL (1.2-3.4); Absolute Monocytes 0.5 10^3/uL (0.1-0.6); Absolute Neutrophils 5.1 10^3/uL (1.4-6.5); Hematocrit 24.6 % (37.0-47.0); Hemoglobin 7.7 g/dL (12.0-16.0); Mean Corp Hgb Conc. 31.3 g/dL (33.0-37.0); Mean Corpuscular Hgb 29.7 pg (27.0-31.0); Mean Platelet Volume 10.7 fL (7.4-10.4); Nucleated Red Blood Cells % 1.9 %; Platelet Count 176 10^3/uL (130-400); Red Blood Cell Count 2.59 10^6/uL (4.20-5.40); Red Cell Dist. Width 21.1 % (11.5-14.5); White Blood Cell Count 6.8 10^3/uL (4.8-10.8)
[2024-04-10 15:44] LABS: Urine Albumin Trace (Neg - Trace); Urine Bilirubin 1+ (Negative); Urine Character Clear (Clear); Urine Color Yellow; Urine Glucose Negative (Negative); Urine Ketone 2+ (Negative); Urine Leukocyte Trace (Negative); Urine Nitrite Negative (Negative); Urine Occult Blood Negative (Negative); Urine Urobilinogen 1+ (Neg - 1+)
[2024-04-10 15:51] LABS: Urine Hyaline Cast 0-2 /LPF (0-2); Urine Red Blood Cell 0-2 /HPF (0-2); Urine Squamous Cell >30 /LPF (Few); Urine White Cell 0-2 /HPF (0-5)
[2024-04-10 15:52] LABS: Urine Bacteria Few (Negative)
[2024-04-10] MEDS: NSS 500 IV (17:30)
--- NOTE | 2024-04-10 17:35 | HPS.HSE ---
Family Physician
-
Family Physician: Talat Del Angel DO
Chief Complaint
-
Weakness
History of Present Illness
Patient very lethargic but arousable. Unable to provide history. Sister Marjorie, one of her POA's (other sister Ashley shares POA), present at bedside and providing history.
78F MDS CAD CABG mo artic insuff HTN Hypothyroidism GERD Breast Ca s/p rad here for evaluation weakness failure to thrive. Referred to ED by her Oncologist during a follow up visit. Prior to visit patient has been at [facility] rehab for a few
weeks following Hospitalization at [place] due to pneumonia and possibly pulm edema that occurred after blood transfusion during her last chemo session. Since her hospitalization patient has been wheelchair bound and Oxygen dependent- prior to
event she was ambulatory with cane and did not require oxygen. Per sister patient has had multiple transfusions over the past few months due to MDS, with the longest period between transfusions 2 weeks. Patient has also had a significant loss of
appetite over the last month, losing 30 pounds in the process. ED eval was notable for hyponatremia 127 and anemia hgb 7.7. Vitals stable afebrile. Patient lethargic confused was able to report stomach pain with some tenderness, details sparse
due to lethargy.
Medical History
Past Medical History
Past Medical History: Reports Other (as above)
Past Surgical History: Reports Other (as above)
Social History
Tobacco: Non-smoker
Alcohol: None
Drug: None
Living: Alf (rehab)
Family History
Family History: Not pertinent (reviewed)
Allergies / Home Medications
Allergies reflects when Allergies were last updated in [facility].
Home Medications with original date entered in [facility]
Allergy/Medication List:
Allergies
Allergy/AdvReac Type Severity Reaction Status Date / Time
dipyridamole Allergy Mild Nausea / Verified 01/14/24 23:34
Vomiting
Home Medications
atorvastatin 20 mg tablet 20 mg PO QPM High Cholesterol 04/16/16
metoprolol tartrate 25 mg tablet 12.5 mg PO BID Blood Pressure 04/16/16
levothyroxine 100 mcg tablet 100 mcg PO DAILY Thyroid 01/14/24
omeprazole 40 mg capsule,delayed release 40 mg PO DAILY Gastrointestinal Issue 01/14/24
acetaminophen 325 mg tablet (Tylenol) 650 mg PO Q6HPRN PRN mild pain/temp >100.4 04/10/24
aspirin 81 mg tablet,delayed release 81 mg PO DAILY 04/10/24
benzonatate 200 mg capsule 200 mg PO TIDPRN PRN cough 04/10/24
bisacodyl 10 mg rectal suppository [address] DAILYPRN PRN if mom ineffective 04/10/24
cranberry extract 425 mg capsule 425 mg PO DAILY 04/10/24
fluticasone propionate 50 mcg/actuation nasal spray,suspension 2 spray intranasal DAILY 04/10/24
hydrocortisone acetate 25 mg rectal suppository (Anusol-HC) [address] HS 04/10/24
magnesium hydroxide 400 mg/5 mL oral suspension (Milk of Magnesia) 30 ml PO DAILYPRN PRN constipation 04/10/24
nitrofurantoin monohydrate/macrocrystals 100 mg capsule (Macrobid) 100 mg PO BID 04/10/24
ondansetron 8 mg disintegrating tablet 8 mg PO Q8HPRN PRN nausea 04/10/24
prochlorperazine maleate 5 mg tablet 5 mg PO BIDPRN PRN nausea 04/10/24
sennosides 8.6 mg tablet (senna) 8.6 mg PO HS 04/10/24
sodium phosphates 19 gram-7 gram/118 mL enema (Enema) [address] DAILYPRN PRN if no result after bisacodyl 04/10/24
Review of Systems
-
Unable to obtain full review of systems at this time due to: Other (patient very lethargic. Unable to obtain full Review of system. Patient able to report stomach pain/tenderness and loss of appetite denied nausea)
Physical Exam
Vital Signs
Vital Signs
Temp Pulse Resp BP Pulse Ox
98.1 F 83 28 137/49 90
04/10/24 12:46 04/10/24 15:30 04/10/24 15:30 04/10/24 15:00 04/10/24 15:00
Physical Exam
General: Other (as below)
Laboratory Results
-
04/10/24 14:35
04/10/24 14:35
Laboratory Results
Total Bilirubin Cancelled 04/10/24 14:35
AST Cancelled 04/10/24 14:35
ALT Cancelled 04/10/24 14:35
Alkaline Phosphatase Cancelled 04/10/24 14:35
Impression/Plan
-
Physical Exam
General: Pallor+, cachectic+, no cyanosis or jaundice.
HEENT: Throat clear. PERRLA Normocephalic atraumatic
NECK: Supple. No JVD Carotid Bruits
RESPIRATORY: Lungs clear to auscultation. No crackles wheezes stridor
CVS: S1, S2 normal. RRR. No murmur, rub or gallop.
ABDOMEN: Soft, non-tender. No distension. BS+/normal.
EXTREMITIES: No peripheral cyanosis, lower ext swelling edema +1 b/l.
CHARGE LPN: Very lethargic arousable but conversation limited
IMPRESSION:
78F MDS CAD CABG mo artic insuff HTN Hypothyroidism GERD Breast Ca s/p rad here for evaluation weakness failure to thrive. Referred to ED by her Oncologist during a follow up visit. Prior to visit patient has been at [facility] rehab for a few
weeks following Hospitalization at [place] due to pneumonia and possibly pulm edema that occurred after blood transfusion during her last chemo session. Since her hospitalization patient has been wheelchair bound and Oxygen dependent- prior to
event she was ambulatory with cane and did not require oxygen. Per sister patient has had multiple transfusions over the past few months due to MDS, with the longest period between transfusions 2 weeks. Patient has also had a significant loss of
appetite over the last month, losing 30 pounds in the process. ED eval was notable for hyponatremia 127 and anemia hgb 7.7. Vitals stable afebrile. Patient lethargic confused was able to report stomach pain with some tenderness, details sparse
due to lethargy. Patient herself unable to provide history. History provided by her sister EVA Amador.
PLAN:
#Hyponatremia
Suspect due to low volume poor oral intake
received IVF NS bolus 500 cc in ED
Cont gentle IV hydration 60 cc/h
monitor Na and respiratory status
#Anemia
#MDS
#Failure to thrive
#Poor appetite, abd pain
check CT abd/pelvis IV and oral contrast if able
Monitor H&H
Type and Screen
Sister EVA Amador consented for transfusion as necessary (patient unable to make decisions at this time, consent filed in chart)
transfuse for goal hgb >7.5
Oncology eval requested
ST/PT/OT
#Lethargy
aspiration precautions
check Chest X-ray and VBG
NPO except meds
Speech eval
ok to advance diet if patient's mental status improves and passes bedside swallow
#CAD CABG
#HTN
cont home ASA and Metoprolol with holding parameters
#Hypothyroidism
cont home synthroid
check TSH reflex T4
dvt ppx Lovenox
Full Code, per sister EVA Amador patient had recently reported that she wanted to be Full Code. Will keep Full code for now pending further discussion with patient when she is more awake alert and at capacity to make decisions for herself.
I spent a total of 80 minutes with the patient or on the floor. More than 50% of this time involved counseling and coordination of care.
[2024-04-10 18:28] LABS: Urine Sodium 90 mmol/L (30-90)
[2024-04-10 18:41] LABS: Potassium 4.3 mmol/L (3.5-5.1); Sodium 128 mmol/L (135-145)
[2024-04-10 18:46] LABS: Osmolality Serum 269 mOsm/kg (275-300)
[2024-04-10 20:10] LABS: ALT (SGPT) 33 U/L (0-35); AST (SGOT) 37 U/L (14-36); Alkaline Phosphatase 78 U/L (38-126); Direct Bilirubin 0.3 mg/dl (0.0-0.4); Lipase 60 U/L (23-300); Total Bilirubin 1.7 mg/dl (0.2-1.3); Total Protein 6.1 g/dl (6.3-8.2)
[2024-04-10] MEDS: NSS 1000 IV (20:36)
[2024-04-10 20:44] LABS: Venous Blood Gas B.E. 0.1 mmol/L (-4 to +4); Venous Blood Gas HCO3 25.9 mmol/L (22-27); Venous Blood Gas O2 Sat % 99.9 %; Venous Blood Gas pCO2 47 mmHg (35-48); Venous Blood Gas pH 7.35 (7.32-7.43); Venous Blood Gas pO2 157 mmHg (30-50)
[2024-04-10 21:02] LABS: Lactic Acid 0.6 mmol/L (0.7-2.0)
[2024-04-10 21:15] LABS: Troponin I < 0.012 ng/ml
--- NOTE | 2024-04-10 22:00 | PTCARENOTE ---
Pt received from ED to IMU. Pt AAOx1. Very drowsy, slow speech. Denies pain. Pt's sister Marjorie stated pt has much difficulty swallowing. Pt in for CT A/P - to drink 960mls contrast - but unable. Pt NPO till seen by speech. IVF's infusing at 60ml/hr
as ordered. VSS. Afebrile. SR on CM. POX on 2L NC 99%. Lungs clear but diminished. Pt can be incontinent per sister but attends are dry at present time. Sister states pt can climb out of bed, bed alarm on and working. Rest of assessment as
documented. Maintained on Q2hr turns. Skin as documented. Call peng remains within reach. Will continue to monitor.
[2024-04-10] MEDS: SENOKOT-S PO (23:04)
[2024-04-10] MEDS: PROTONIX IV 40 MG IV (23:22)
[2024-04-10] MEDS: LOVENOX 40 MG SC (23:23)
[2024-04-10] MEDS: NSS (PRESERVATIVE FREE) 10 ML IV (23:23)
[2024-04-10] MEDS: ANUSOL HC 25 MG RECTAL (23:24)
[2024-04-11] VITALS (17 sets, daily range): BP systolic 113–154; BP diastolic 35–51; BMI 25.5
--- NOTE | 2024-04-11 07:41 | W.PN.HOSP.TC ---
Today's Communication/Plan
-
gentle IVF support
clear liquid diet
ST/PT/OT
1PRBC transfusion for Hgb 6.8
Pulm GI eval requested
Incentive spirometer
cont bowel regimen
once suppository
Assessment / Plan
Assessment / Plan
Physical Exam
General: Pallor+, cachectic+, no cyanosis or jaundice.
HEENT: Throat clear. PERRLA Normocephalic atraumatic
NECK: Supple. No JVD Carotid Bruits
RESPIRATORY: Left sided basilar crackles
CVS: S1, S2 normal. RRR. No murmur, rub or gallop.
ABDOMEN: Soft, non-tender. No distension. BS+/normal.
EXTREMITIES: No peripheral cyanosis, lower ext swelling edema +1 b/l.
SENIOR RESEARCH PROJECT MANAGER: Very lethargic arousable but conversation limited
IMPRESSION:
78F MDS CAD CABG mo artic insuff HTN Hypothyroidism GERD Breast Ca s/p rad here for evaluation weakness failure to thrive. Referred to ED by her Oncologist during a follow up visit. Prior to visit patient has been at [facility] rehab for a few
weeks following Hospitalization at [place] due to pneumonia and possibly pulm edema that occurred after blood transfusion during her last chemo session. Since her hospitalization patient has been wheelchair bound and Oxygen dependent- prior to
event she was ambulatory with cane and did not require oxygen. Per sister patient has had multiple transfusions over the past few months due to MDS, with the longest period between transfusions 2 weeks. Patient has also had a significant loss of
appetite over the last month, losing 30 pounds in the process. ED eval was notable for hyponatremia 127 and anemia hgb 7.7. Vitals stable afebrile. Patient lethargic confused was able to report stomach pain with some tenderness, details sparse
due to lethargy. Patient herself unable to provide history. History provided by her sister EVA Amador.
PLAN:
#Hyponatremia
Suspect due to low volume poor oral intake
received IVF NS bolus 500 cc in ED
Cont gentle IV NS hydration 60 cc/h
Na since improved
cont IVF for now pending improvement in oral intake
#Anemia
#MDS
#Failure to thrive
#Poor appetite, abd pain
Monitor H&H
04/11 receiving 1PRBC for Hgb 6.8 (possible dilutional component d/t IVF) follow up post-transfusion CBC with AM labs
Oncology eval appreciated transfuse prn hgb<7
ST/PT/OT
CT abd/pelvis IV and oral contrast appreciated the following:
-Complex left pleural effusion with pleural thickening versus debris along the pleural surface. Adjacent compressive atelectasis.
-Trace right pleural effusion.
-Small hiatal hernia.
-Mild to moderate fecal burden. Moderate solid fecal burden in the moderately distended rectum, consistent with impaction.
-No bowel obstruction.
-Eccentric wall thickening involving the cecum/ascending colon.
-Small left ovarian cyst measuring 13 mm.
Pulm eval requested complex left pleural effusion w adjacent compressive atelectasis as noted in CT. Incentive spirometer ordered
GI eval requested fecal impaction and eccentric wall thickening cecum ascending colon as noted on CT. Bowel regimen continued miralax senna colace, once suppository ordered.
#Acute Metabolic Encephalopathy
#Lethargy since improved
aspiration precautions
Chest X-ray results pending
VBG wnl
Diet advanced to clear liquid with improvement in mental status
maintain aspiration precautions
Speech eval pending
#CAD CABG
#HTN
cont home ASA
cont home Metoprolol with holding parameters
#Hypothyroidism
cont home synthroid
TSH appreciated mild elevation 7.10 but T4 wnl
recommend repeat TFTs in 1 month follow up
dvt ppx Lovenox
DNR as per patient, sister EVA Amador in agreement with patient's decision
discussed with patient and patient's sister Marjorie VELASQUEZ
I spent a total of 55 minutes with the patient or on the floor. More than 50% of this time involved counseling and coordination of care.
Anticipated Discharge: > 48 hours
Subjective/Interval History
-
Date of Service: April 11, 2024
Seen and examined at bedside in no acute distress resting comfortably in bed. More alert coherent and conversant this morning. Reports feeling better. Abd pain resolved at this time. Denies nausea.
Objective Data
-
Labs:
Laboratory Results
04/10/24 04/11/24
18:06 06:00
WBC Pending
Hgb Pending
Hct Pending
Plt Count Pending
Sodium Pending
Potassium Pending
Chloride Pending
Carbon Dioxide Pending
BUN Pending
Creatinine Pending
Glucose Pending
Calcium Pending
Total Bilirubin 1.7 H
AST 37 H
ALT 33
Alkaline Phosphatase 78
Vital Signs:
Vital Signs
Temp Pulse Resp BP Pulse Ox
99.1 F 100 30 134/43 99
04/11/24 04:00 04/11/24 06:15 04/11/24 06:15 04/11/24 06:00 04/11/24 07:39
I&O
04/10/24 04/11/24 04/12/24
06:59 06:59 05:59
Intake Total 500 / 500
Balance 500 / 500
[2024-04-11 08:41] LABS: Hemoglobin 6.8 g/dL (12.0-16.0); Mean Corp Hgb Conc. 30.9 g/dL (33.0-37.0); Mean Corpuscular Hgb 29.7 pg (27.0-31.0); Mean Corpuscular Volume 96.1 fL (81.0-99.0); Mean Platelet Volume 10.6 fL (7.4-10.4); Platelet Count 177 10^3/uL (130-400); Red Blood Cell Count 2.29 10^6/uL (4.20-5.40); Red Cell Dist. Width 21.5 % (11.5-14.5); White Blood Cell Count 5.3 10^3/uL (4.8-10.8)
[2024-04-11] MEDS: OMNIPAQUE 50 ML PO (08:43)
[2024-04-11] MEDS: LOPRESSOR 12.5 MG PO ×2 (08:44→19:58)
[2024-04-11] MEDS: SYNTHROID 100 MCG PO (08:45)
[2024-04-11] MEDS: SENOKOT-S 1 TABLET PO ×2 (08:45→19:58)
[2024-04-11] MEDS: PROTONIX IV 40 MG IV (08:45)
[2024-04-11] MEDS: MIRALAX 17 GRAMS PO (08:45)
[2024-04-11] MEDS: NSS (PRESERVATIVE FREE) 10 ML IV (08:45)
[2024-04-11] MEDS: ASPIR LOW (ENTERIC COATED) 81 MG PO (08:45)
[2024-04-11 08:53] LABS: Blood Urea Nitrogen 14 mg/dl (7-17); Calcium 7.4 mg/dl (8.4-10.2); Carbon Dioxide 23 mmol/L (22-30); Chloride 100 mmol/L (98-107); Estimated Creatinine Clearance 62 ml/min; Glucose 76 mg/dl (70-99); Magnesium 1.9 mg/dl (1.6-2.3); Potassium 4.5 mmol/L (3.5-5.1); Sodium 133 mmol/L (135-145); eGFR > 60.00
--- NOTE | 2024-04-11 09:16 | W.PN.UPDATE ---
Update Note
Progress Note Update
Discussed with patient more alert awake coherent this morning. Discussed code status and patient was able to clearly state that she does not want to be resuscitated/intubated in the event of cardiac arrest. Should such an event occur, patient
reported that she simply wanted to be let go. Sister EVA Amador aware and in agreement with patient's decision. Code status updated accordingly.
With improvement in mental status, Diet tentatively advanced to clear liquid, pending speech eval.
--- NOTE | 2024-04-11 09:49 | CON.ONC ---
Impression
Impression
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
Significant decline in performance status
Remote breast carcinoma
Tolerating azacitidine poorly
Status post pneumonia/pleural effusion
Deconditioning with prolonged rehabilitative stay
Consider initiating erythropoietin support as an outpatient
Transfuse hemoglobin less than 7g/dl platelet count less than 10K
Patient History
History of Present Illness
78F With very poor risk MDS, CAD, CABG, aortic insufficiency, HTN, Hypothyroidism, GERD, Breast Ca T1c ER positive s/p rad 2011 Was referred from office weakness failure to thrive. She has noted a lost 20-30 pounds weight loss with declining
performance status. Prior to visit patient has been at [facility] rehab for a few weeks following Hospitalization at [facility] due to pneumonia and posttransfusion pulmonary edema. Since her hospitalization patient has been wheelchair bound and
Oxygen dependent- prior to event she was ambulatory with cane and did not require oxygen. ED eval was notable for hyponatremia 127 and anemia hgb 7.7. Vitals stable afebrile. Patient lethargic confused was able to report stomach pain with some
tenderness, details sparse due to lethargy.She has been receiving azacitidine last dose 03/11/24 but does not appear to be receiving erythropoietin support.
Past-Medical/Surgical History
PMH: coronary artery disease status post CABG, moderate aortic insufficiency, hypertension, hypothyroidism, GERD, Stage I breast cancer status post radiation
PSH: Thyroidectomy, appendectomy, tonsillectomy, colon polyp removal, bilateral oophorectomy
Social History
Tobacco: Non-smoker
Alcohol: None
Drug: None
Family History
Family History: Not pertinent
Patient Medication
�Medication �Instructions �Recorded �Confirmed �Last Taken �Type
atorvastatin 20 mg tablet 20 mg PO QPM High Cholesterol 04/16/16 04/10/24 01/13/24 History
metoprolol tartrate 25 mg tablet 12.5 mg PO BID Blood Pressure 04/16/16 04/10/24 01/14/24 History
levothyroxine 100 mcg tablet 100 mcg PO DAILY Thyroid 01/14/24 04/10/24 01/14/24 History
omeprazole 40 mg capsule,delayed 40 mg PO DAILY Gastrointestinal 01/14/24 04/10/24 01/13/24 History
release Issue
acetaminophen 325 mg tablet 650 mg PO Q6HPRN PRN mild 04/10/24 04/10/24 Unknown History
(Tylenol) pain/temp >100.4
aspirin 81 mg tablet,delayed 81 mg PO DAILY 04/10/24 04/10/24 Unknown History
release
benzonatate 200 mg capsule 200 mg PO TIDPRN PRN cough 04/10/24 04/10/24 Unknown History
bisacodyl 10 mg rectal suppository 10 mg MA DAILYPRN PRN if mom 04/10/24 04/10/24 Unknown History
ineffective
cranberry extract 425 mg capsule 425 mg PO DAILY 04/10/24 04/10/24 Unknown History
fluticasone propionate 50 2 spray intranasal DAILY 04/10/24 04/10/24 Unknown History
mcg/actuation nasal
spray,suspension
hydrocortisone acetate 25 mg 25 mg MA HS 04/10/24 04/10/24 Unknown History
rectal suppository (Anusol-HC)
magnesium hydroxide 400 mg/5 mL 30 ml PO DAILYPRN PRN constipation 04/10/24 04/10/24 Unknown History
oral suspension (Milk of Magnesia)
nitrofurantoin 100 mg PO BID 04/10/24 04/10/24 Unknown History
monohydrate/macrocrystals 100 mg
capsule (Macrobid)
ondansetron 8 mg disintegrating 8 mg PO Q8HPRN PRN nausea 04/10/24 04/10/24 Unknown History
tablet
prochlorperazine maleate 5 mg 5 mg PO BIDPRN PRN nausea 04/10/24 04/10/24 Unknown History
tablet
sennosides 8.6 mg tablet (senna) 8.6 mg PO HS 04/10/24 04/10/24 Unknown History
sodium phosphates 19 gram-7 118 ml MA DAILYPRN PRN if no 04/10/24 04/10/24 Unknown History
gram/118 mL enema (Enema) result after bisacodyl
Active Medications
Generic Name Dose Route Start Last Admin
Trade Name Freq PRN Reason Stop Dose Admin
Acetaminophen 650 mg 04/10/24 21:48
Acetaminophen 325 Mg Tablet PO 05/08/24 21:47
Q6HPRN PRN
mild pain/temp >100.4
Albuterol/Ipratropium 3 ml 04/10/24 21:48
Ipratropium 0.5/Albuterol 3 Mg (3 Ml Ampul) INH
R Q4HPRN PRN
shortness of breath
Protocol
Aspirin 81 mg 04/11/24 08:00 04/11/24 08:45
Aspirin 81 Mg (Enteric Coated) Tablet PO 05/09/24 07:59 81 mg
DAILY VLADIMIR Administration
Atorvastatin Calcium 20 mg 04/11/24 18:00
Atorvastatin (Lipitor) 20 Mg Tablet PO 05/09/24 17:59
QPM VLADIMIR
Benzonatate 200 mg 04/10/24 22:01
Benzonatate 100 Mg Capsule PO 05/08/24 22:00
TIDPRN PRN
cough
Bisacodyl 10 mg 04/10/24 21:48
Bisacodyl 10 Mg Rectal Suppository RECTAL 05/08/24 21:47
[id number] PRN
constipation
Enoxaparin Sodium 40 mg 04/10/24 21:48 04/10/24 23:23
Enoxaparin Sodium 40 Mg/0.4 Ml Syringe SC 05/08/24 21:47 40 mg
QPM VLADIMIR Administration
Hydrocortisone Acetate 25 mg 04/10/24 22:00 04/10/24 23:24
Anusol Hc 25 Mg Rectal Suppository RECTAL 05/08/24 21:59 25 mg
HS VLADIMIR Administration
Sodium Chloride 1,000 mls @ 60 mls/hr 04/10/24 19:00 04/10/24 20:36
Nss IV 1,000 mls
.[id number] VLADIMIR Administration
Levothyroxine Sodium 100 mcg 04/11/24 08:00 04/11/24 08:45
Levothyroxine 100 Mcg Tablet PO 05/09/24 07:59 100 mcg
DAILY @ 0600 VLADIMIR Administration
Metoprolol Tartrate 12.5 mg 04/11/24 08:00 04/11/24 08:44
Metoprolol 12.5 Mg Regular Release Dose (1/2 Of 25 Mg Tablet) PO 05/09/24 07:59 12.5 mg
BID VLADIMIR Administration
Pantoprazole Sodium 40 mg 04/11/24 08:00 04/11/24 08:45
Protonix 40 Mg Iv Push IV 05/09/24 07:59 40 mg
DAILY VLADIMIR Administration
Polyethylene Glycol 17 grams 04/11/24 08:00 04/11/24 08:45
Polyethylene Glycol Powder 17 Grams Packet PO 05/09/24 07:59 17 grams
DAILY VLADIMIR Administration
Prochlorperazine Edisylate 5 mg 04/10/24 21:48
Prochlorperazine 10 Mg/2 Ml Vial IV 05/08/24 21:47
Q6HPRN PRN
nausea/vomiting
Senna/Docusate Sodium 1 tablet 04/10/24 21:48 04/11/24 08:45
Docusate W/Senna (Sharon-Colace) Tablet PO 05/08/24 21:47 1 tablet
BID VLADIMIR Administration
Sodium Chloride 10 ml 04/11/24 08:00 04/11/24 08:45
Sodium Chloride 0.9% (Preservative Free) 10 Ml Vial IV 05/09/24 07:59 10 ml
DAILY VLADIMIR Administration
Sodium Chloride 0 flush 04/10/24 22:00
Sodium Chloride 0.9% (Flush) Syringe IV 05/08/24 21:59
PER PROTOCOL VLADIMIR
Review of Systems
-
12 point review of systems unremarkable other than fatigue and weakness. Patient less lethargic than described yesterday.
Physical Exam
-
General: Well Developed answers questions appropriately
HEENT: Negative Jaundice
Cardiology: Normal Sinus Rhythm, S1 and S2
Pulmonary: Clear
GI: Soft and Normal Bowel Sounds
Extremities: No C/C/E
Neurology: Non Focal
Labs
Lab Results
WBC 5.3 10^3/uL (4.8-10.8) 04/11/24 08:27
RBC 2.29 10^6/uL (4.20-5.40) L 04/11/24 08:27
Hgb 6.8 g/dL (12.0-16.0) L* 04/11/24 08:27
Hct 22.0 % (37.0-47.0) L 04/11/24 08:27
MCV 96.1 fL (81.0-99.0) 04/11/24 08:27
MCH 29.7 pg (27.0-31.0) 04/11/24 08:27
MCHC 30.9 g/dL (33.0-37.0) L 04/11/24 08:27
RDW 21.5 % (11.5-14.5) H 04/11/24 08:27
Plt Count 177 10^3/uL (130-400) 04/11/24 08:27
MPV 10.6 fL (7.4-10.4) H 04/11/24 08:27
Abs Immat Gran (auto) 0.5 10^3/uL (0-0.05) H 04/10/24 14:35
Absolute Neuts (auto) 5.1 10^3/uL (1.4-6.5) 04/10/24 14:35
Absolute Lymphs (auto) 0.7 10^3/uL (1.2-3.4) L 04/10/24 14:35
Absolute Monos (auto) 0.5 10^3/uL (0.1-0.6) 04/10/24 14:35
Absolute Eos (auto) 0.0 10^3/uL (0-0.7) 04/10/24 14:35
Absolute Basos (auto) 0.0 10^3/uL (0-0.2) 04/10/24 14:35
Immature Gran % 6.6 % (0-0.5) H 04/10/24 14:35
Neutrophils % 74.8 % (42.2-75.2) 04/10/24 14:35
Lymphocytes % 10.9 % (20.5-51.1) L 04/10/24 14:35
Monocytes % 7.0 % (1.7-9.3) 04/10/24 14:35
Eosinophils % 0.1 % (0-6) 04/10/24 14:35
Basophils % 0.6 % (0-2) 04/10/24 14:35
Creatinine 0.5 mg/dL (0.6-1.0) L 04/11/24 08:27
Vital Signs
Vital Signs
Temp Pulse Resp BP Pulse Ox
98.8 F 100 30 134/43 99
04/11/24 07:30 04/11/24 06:15 04/11/24 06:15 04/11/24 06:00 04/11/24 07:39
[2024-04-11] MEDS: NSS 1000 IV (15:27)
[2024-04-11] MEDS: DULCOLAX 10 MG RECTAL (15:27)
--- NOTE | 2024-04-11 15:56 | CON.PUL ---
Consultation
Consultation Request
Date/Time Consultation Requested: 04/11
Date/Time Consultation Performed: 04/11
Reason for Consultation: Hypoxia
Medical History
-
History of Present Illness:
History obtained from the patient, reviewing hospital records and obtained from sister at bedside. It is noted that the patient is a poor historian. Patient is a pleasant 78-year-old female with history of breast cancer 20 years ago status post
radiation, coronary disease with bypass surgery, recently diagnosed MDS, hospitalized at [facility] for hypoxia following transfusion, and rehabilitation for the last 3 weeks. She was last home 1 month ago. Patient was sent to [facility] by oncologist. Upon arrival, afebrile, pulse 84, breathing at 16, blood pressure 104/56, 95%. Patient was noted to be anemic with a hemoglobin of 7.7 and failure to thrive, sodium of 127. She was given IV fluids and admitted. We are
asked to comment on her oxygen requirement
Patient denies shortness of breath, chest pain, nausea, abdominal pain but she appears fatigued. Mild use of accessory muscles during answering questions. Her sister who was at the bedside states that she has been short of breath but has not been
on oxygen. She did develop hypoxia prior to her last hospital stay at [facility] while receiving a transfusion. There is no clear history of falls. Patient has had a 30 pound weight loss over the past 6 months
.
PMH: Pancytopenia, possible MDS requiring transfusions. History of breast cancer status post radiation, coronary disease with bypass surgery, hypertension, hypothyroidism, GERD. History of thyroidectomy, appendectomy, tonsillectomy, bilateral
oophorectomy
Past Medical History
Past Medical History: None (See above)
Past Surgical History: None (See above)
Social History
Tobacco: Non-smoker
Alcohol: None
Drug: None
Living: Alone
Employment: Not Employed
Family History
Family History: Reviewed & Not Pertinent (Family history negative for blood clots)
Allergies / Home Medications
Allergies
Allergy/AdvReac Type Severity Reaction Status Date / Time
dipyridamole Allergy Mild Nausea / Verified 01/14/24 23:34
Vomiting
Home Medications
�Medication �Instructions �Recorded �Confirmed �Last Taken �Type
atorvastatin 20 mg tablet 20 mg PO QPM High Cholesterol 04/16/16 04/10/24 01/13/24 History
metoprolol tartrate 25 mg tablet 12.5 mg PO BID Blood Pressure 04/16/16 04/10/24 01/14/24 History
levothyroxine 100 mcg tablet 100 mcg PO DAILY Thyroid 01/14/24 04/10/24 01/14/24 History
omeprazole 40 mg capsule,delayed 40 mg PO DAILY Gastrointestinal 01/14/24 04/10/24 01/13/24 History
release Issue
acetaminophen 325 mg tablet 650 mg PO Q6HPRN PRN mild 04/10/24 04/10/24 Unknown History
(Tylenol) pain/temp >100.4
aspirin 81 mg tablet,delayed 81 mg PO DAILY Blood Clot 04/10/24 04/10/24 Unknown History
release Prevention/Tx
benzonatate 200 mg capsule 200 mg PO TIDPRN PRN cough 04/10/24 04/10/24 Unknown History
bisacodyl 10 mg rectal suppository 10 mg AK DAILYPRN PRN if mom 04/10/24 04/10/24 Unknown History
ineffective
cranberry extract 425 mg capsule 425 mg PO DAILY Supplement 04/10/24 04/10/24 Unknown History
fluticasone propionate 50 2 spray intranasal DAILY Congestion 04/10/24 04/10/24 Unknown History
mcg/actuation nasal
spray,suspension
hydrocortisone acetate 25 mg 25 mg AK HS RECTAL 04/10/24 04/10/24 Unknown History
rectal suppository (Anusol-HC)
magnesium hydroxide 400 mg/5 mL 30 ml PO DAILYPRN PRN constipation 04/10/24 04/10/24 Unknown History
oral suspension (Milk of Magnesia)
nitrofurantoin 100 mg PO BID Infection 04/10/24 04/10/24 Unknown History
monohydrate/macrocrystals 100 mg
capsule (Macrobid)
ondansetron 8 mg disintegrating 8 mg PO Q8HPRN PRN nausea 04/10/24 04/10/24 Unknown History
tablet
prochlorperazine maleate 5 mg 5 mg PO BIDPRN PRN nausea 04/10/24 04/10/24 Unknown History
tablet
sennosides 8.6 mg tablet (senna) 8.6 mg PO HS Constipation 04/10/24 04/10/24 Unknown History
sodium phosphates 19 gram-7 118 ml AK DAILYPRN PRN if no 04/10/24 04/10/24 Unknown History
gram/118 mL enema (Enema) result after bisacodyl
Review of Systems
-
All other systems: Negative unless noted
Vitals / Labs / Diagnostic Testing
Vital Signs
Temp Pulse Resp BP Pulse Ox
98.2 F 85 24 127/44 95
04/11/24 15:36 04/11/24 15:36 04/11/24 15:36 04/11/24 15:36 04/11/24 12:00
Lab Data
04/11/24 08:27
04/11/24 08:27
Diagnostic Testing:
Physical Exam
-
HEENT: Normocephalic, Anicteric and Other (Pallorous conjunctiva)
Cardiovascular: S1/S2, Regular Rhythm, Murmur (n), Rub (n), Peripheral Edema (n) and Calf Tenderness (n)
Respiratory: Wheeze (n), Rales (n), Rhonchi (n), Accessory Resp Muscle Use (Mild use of accessory muscles with conversation) and Other (Decreased breath sounds left base)
GI: Soft, Non Distended and Non Tender
Neurology: Awake, Alert and Other (She knows she is in the hospital but does not know which hospital)
Skin: Other (Mildly pallorous)
General: Respiratory Distress (Mild use of accessory muscles with conversation)
Assessment
-
78-year-old female with history of MDS requiring transfusion in the past, failure to thrive, 30 pound weight loss, history of coronary disease, valvular disease and distant history of breast cancer who presents with failure to thrive, fatigue,
anemia requiring transfusion. We are asked to comment on oxygen requirement and abnormal imaging
Acute hypoxic respiratory insufficiency, saturation 87%
Requiring 2 L
Left pleural effusion per abdominal imaging 04/11/2024
Per patient, history of pleural effusion drained in the past
Details unclear, patient not a good historian
Recent left-sided pneumonia treated at [facility]
Details unclear
MDS/pancytopenia
Requiring intermittent transfusion
On chemotherapy/azacitidine
Conditions present prior to admission
Coronary disease, bypass surgery
Hypertension
Hypothyroidism
GERD
History of breast cancer 2011, radiation
30 pound weight loss
DNR
Plan/recommendations
Patient not a very good historian
Most history obtained from chart and from the sister at the bedside
Salient features include pleural effusion at the left base per abdominal imaging, questionable history of recent pneumonia with questionable thoracentesis (sister unaware)
She is requiring 2 L of oxygen
She is profoundly fatigued, and although compliant with exam and commands, at risk for element of hypoventilation
EKG with nonspecific ST changes
Chest x-ray with mild interstitial changes
Moving forward
Continue with management per hematology
She just received a transfusion
According to sister, she is more alert and less fatigued
On exam there is a left pleural effusion
Will obtain records from [facility] specifically any prior thoracentesis which has been done
Patient, nor sister are aware of any recent trauma or falls
Check chest ultrasound on 04/13
When discussed possible need for thoracentesis, patient was not agreeable. She states it was painful in the past
This will be an ongoing discussion about
Patient is also high risk for thromboembolic disease
Consider echocardiogram/Doppler on Saturday
Will try to obtain further records from [facility]
Remains on DVT prophylaxis
DNR status noted. Sister describes slow decline over the last month
Reviewed with nursing, sister at bedside and patient
Will follow
--- NOTE | 2024-04-11 16:11 | CM ---
Addendum entered by Jammie Ortega 04/11/24 16:34:
Pharmacy: [facility] [place], [place]
Referrals sent via [facility]
Original Note:
Initial assessment completed via phone with patient's sister, Ashley Aldridge
Pharmacy: [facility] [id number] [address] [address] [place], [place]
Patient lives alone in an apartment located in [place]; her sisters are her primary caregivers.
Prior to admission to the hospital, patient was at [facility].
Per her sister, patient is very weak and needed total care; too weak to ambulate; staff took her to the bathroom via for toileting
PT/OT pending; if SNF is recommended, sister's preferences are [facility], [facility] [place], and [facility] [place]
Plan: discharge to SNF pending bed availability
--- NOTE | 2024-04-11 16:39 | CON.GI ---
Consultation
-
Date/Time Consultation Requested: 04/11/24, 1536
Date/Time Consultation Performed: 04/11/2024, 1640
Requesting Provider: Dr. Cuevas
Performing Provider: Dr. Potter
Reason for Consultation: Abnormal CT, increased fecal burden
Medical History
Chief Complaint / HPI
Chief Complaint: Weakness
History of Present Illness:
Ms Ball is a 78 y.o female with past medical history of HTN, hypothyroidism, CAD s/p CABG, aortic insufficiency, breast cancer (s/p XRT), and recently diagnosed MDS who presented to the ED at the direction of her Oncologist due to concern for
weakness and failure to thrive. Found to CT Abd/pelvis with increased, moderate stool burden and fecal impaction along with eccentric wall thickening in the cecum/ascending colon for which GI has been consulted.
Patient is a poor historian, thus history largely obtained via HPI and view of prior records although limited and discussion with family at bedside. Patient notes an unintentional 20-30 lb weight loss over the past several weeks to months. Noted to
have worsening weakness and declined in performance status. She was recently hospitalized a few weeks ago at [facility] for PNA and post-transfusions pulmonary edema. Since that time she has been wheelchair bound and oxygen dependent. She
was never on oxygen prior to his hospitalization.
In regards to her GI history, she notes chronic constipation at baseline. Reports moving her bowels every 5 days. Denies any recent BM in the past 3 days. takes Miralax as needed and very infrequently. No blood or dark stools, but does note prior
hemorrhoids with bleeding in thet past. No melena or BRBPR. Passing flatus currently, but denies any nausea/vomiting. Has vague abdominal discomfort but no pain. Reports her last colonoscopy was over > 10 yrs ago when she was diagnosed with colon
cancer (?). Both patient and family report that she had abdominal surgery > 10 yrs ago at [facility]. She has never had a follow-up surveillance colonoscopy since that time. Reviewed [facility] records and unable to locate any prior
external records regarding this as well. Otherwise, she denies any dysphagia, odynophagia, reflux, heartburn, globus sensation or epigastric abdominal pain. She has never had a prior EGD.
Prior GI Records: Unable to locate prior Colonoscopy records
In the ED, labs were notable for hyponatremia 127 and anemia hgb 7.7. Repeat Hgb this AM with Hgb 6.8 and pts 177. Given her abdominal pain and hx of malignancy, a CT Abd/pelvis on 04/11 revealed a complex L pleural effusion with pleural thickening
versus debris along the pleural space. Correlation with thoracentesis was recommended along with a trace R pleural effusion. Additionally, noted to have mild to moderate fecal burden and moderate fecal burden in rectum concerning for impaction
without any bowel dilatation or obstruction. There was eccentric wall thickening of the cecum/ascending colon as well for which further evaluation with a colonoscopy was recommended.
Hematology was also consulted given her history of MDS and Pulmonary was consulted given findings on CT with concern for complex L pleural effusion.
Past Medical History
Past Medical History: Other (Coronary artery disease status post CABG, moderate aortic insufficiency, hypertension, hypothyroidism, GERD, Stage I breast cancer status post radiation, hx of CRC)
Past Surgical History: Other (Thyroidectomy, appendectomy, tonsillectomy, bilateral oophorectomy, colon polyp removal, hx of colon cancer (s/p resection ?))
Social History
Tobacco: Non-Smoker
Alcohol: None
Drug: None
Family History
Family History: Reviewed & Not Pertinent
Allergies / Home Medications
Allergy/AdvReac Type Severity Reaction Status Date / Time
dipyridamole Allergy Mild Nausea / Verified 01/14/24 23:34
Vomiting
�Medication �Instructions �Recorded
atorvastatin 20 mg tablet 20 mg PO QPM High Cholesterol 04/16/16
metoprolol tartrate 25 mg tablet 12.5 mg PO BID Blood Pressure 04/16/16
levothyroxine 100 mcg tablet 100 mcg PO DAILY Thyroid 01/14/24
omeprazole 40 mg capsule,delayed 40 mg PO DAILY Gastrointestinal 01/14/24
release Issue
acetaminophen 325 mg tablet 650 mg PO Q6HPRN PRN mild 04/10/24
(Tylenol) pain/temp >100.4
aspirin 81 mg tablet,delayed 81 mg PO DAILY Blood Clot 04/10/24
release Prevention/Tx
benzonatate 200 mg capsule 200 mg PO TIDPRN PRN cough 04/10/24
bisacodyl 10 mg rectal suppository 10 mg [place] DAILYPRN PRN if mom 04/10/24
ineffective
cranberry extract 425 mg capsule 425 mg PO DAILY Supplement 04/10/24
fluticasone propionate 50 2 spray intranasal DAILY Congestion 04/10/24
mcg/actuation nasal
spray,suspension
hydrocortisone acetate 25 mg 25 mg KY HS RECTAL 04/10/24
rectal suppository (Anusol-HC)
magnesium hydroxide 400 mg/5 mL 30 ml PO DAILYPRN PRN constipation 04/10/24
oral suspension (Milk of Magnesia)
nitrofurantoin 100 mg PO BID Infection 04/10/24
monohydrate/macrocrystals 100 mg
capsule (Macrobid)
ondansetron 8 mg disintegrating 8 mg PO Q8HPRN PRN nausea 04/10/24
tablet
prochlorperazine maleate 5 mg 5 mg PO BIDPRN PRN nausea 04/10/24
tablet
sennosides 8.6 mg tablet (senna) 8.6 mg PO HS Constipation 04/10/24
sodium phosphates 19 gram-7 118 ml [place] DAILYPRN PRN if no 04/10/24
gram/118 mL enema (Enema) result after bisacodyl
Review of Systems
-
All other systems: A 12 pt ROS was Negative except as stated above in HPI
Vital Signs
Temp Pulse Resp BP Pulse Ox
98.2 F 85 24 127/44 95
04/11/24 15:36 04/11/24 15:36 04/11/24 15:36 04/11/24 15:36 04/11/24 12:00
Physical Exam
Exam
General: Other (Chronically-ill, elderly, frail appearing female, in no acute distress)
HEENT: Moist Mucous Membranes and Other (Pale conjunctivae)
Respiratory: Non Labored Respirations and Other (Breathing comfortably on supplemental O2)
Cardiac: Regular Rhythm
GI: Soft, Non Tender, Non Distended and Other (Well-healed surgical scars from prior surgery)
Skin: Other (Diffuse pallor)
Neuro: Other (AAOx2 (did not know hospital))
Psych: Calm
Results
WBC 5.3 10^3/uL (4.8-10.8) 04/11/24 08:27
Hgb 6.8 g/dL (12.0-16.0) L* 04/11/24 08:27
Hct 22.0 % (37.0-47.0) L 04/11/24 08:27
MCV 96.1 fL (81.0-99.0) 04/11/24 08:27
Plt Count 177 10^3/uL (130-400) 04/11/24 08:27
Absolute Neuts (auto) 5.1 10^3/uL (1.4-6.5) 04/10/24 14:35
Sodium 133 mmol/L (135-145) L 04/11/24 08:27
Potassium 4.5 mmol/L (3.5-5.1) 04/11/24 08:27
Chloride 100 mmol/L (98-107) 04/11/24 08:27
Carbon Dioxide 23 mmol/L (22-30) 04/11/24 08:27
BUN 14 mg/dl (7-17) 04/11/24 08:27
Creatinine 0.5 mg/dL (0.6-1.0) L 04/11/24 08:27
Calcium 7.4 mg/dl (8.4-10.2) L 04/11/24 08:27
Total Bilirubin 1.7 mg/dl (0.2-1.3) H 04/10/24 18:06
AST 37 U/L (14-36) H 04/10/24 18:06
ALT 33 U/L (0-35) 04/10/24 18:06
Alkaline Phosphatase 78 U/L (38-126) 04/10/24 18:06
Lipase 60 U/L (23-300) 04/10/24 18:06
Diagnostic Image Results:
CT Abd/pelvis on 04/11 revealed a complex L pleural effusion with pleural thickening versus debris along the pleural space. Correlation with thoracentesis was recommended along with a trace R pleural effusion. Additionally, noted to have mild to
moderate fecal burden and moderate fecal burden in rectum concerning for impaction without any bowel dilatation or obstruction. There was eccentric wall thickening of the cecum/ascending colon as well for which further evaluation with a colonoscopy
was recommended.
Prior GI Procedures: Unable to locate prior endoscopy records
Assessment / Plan
-
Ms Ball is a 78 y.o female with past medical history of HTN, hypothyroidism, CAD s/p CABG, aortic insufficiency, breast cancer (s/p XRT), and recently diagnosed MDS who presented to the ED at the direction of her Oncologist due to concern for
weakness and failure to thrive. Found to CT Abd/pelvis with increased, moderate stool burden and fecal impaction along with eccentric wall thickening in the cecum/ascending colon for which GI has been consulted.
#Significant Stool [place] on CT Imaging
#Chronic, Severe Constipation
#Hx of Colon Cancer (s/p resection)
#30 lb Unintentional Weight Loss
#Failure to Thrive
#Normocytic Anemia
#Hx of MDS (on chemo/azacitidine)
#Hypoxic Respiratory Failure #Complex L Pleural Effusion
Impression: Patient presenting with weakness and concern for failure to thrive along with unintentional weight loss of 30 lbs on admission. Prior hospitalization at [facility] a few weeks ago for L-sided pneumonia (details unclear). CT
Abd/pelvis 04/11 revealing a large complex pleural effusion along with moderate stool burden throughout the colon and rectum concerning for a fecal impaction along with abnormal, eccentric bowel wall thickening of the cecum and ascending colon. No
signs of GI bleeding, however patient reports a history of colon cancer > 10 yrs ago for which she underwent surgery at [facility]. Personally reviewed CT imaging and unable to fully assess any evidence of a prior colonic
anastomosis, only noting significant stool burden. Reportedly, she denies any follow-up surveillance colonoscopy after her surgery (reported by both patient and family). Need to obtain further records regarding this. For now would treat her severe
constipation and fecal impaction with enemas along with bowel purge for clean-out to prevent any complication (ie stercoral ulcerations, etc). Ultimately, she may benefit from a colonoscopy while inpatient but would defer any plans for any
endoscopic intervention at this time pending optimization of her pulmonary status.
Recommendations:
- Stop regular diet. CLD only until bowel movement
- Give mag citrate from above for clean out
- Start milk of molasses enemas q 8 hrs for 24 hrs given fecal impaction
- No signs of overt GI bleeding at this time. F/u post-transfusion CBC after 1 uPRBC
- Continue to trend Hgb with serial CBC, transfuse for goal Hgb > 7.0
- Will need to obtain OSH records ([facility]) given hx of colon cancer in the past with reported prior surgery
- Pulmonary planning on obtaining TTE and Chest US on 04/13 with possible repeat thoracentesis given L pleural effusion noted on CT
- Once patient is optimized from a pulmonary standpoint, could consider a colonoscopy while inpatient prior to discharge given her hx of colon cancer and abnormal CT imaging. However, defer any plans for any endoscopic evaluation at this time
- Hematology following given her hx of MDS, appreciate recs
- Rest of care per primary team
Discussed with patient's family this afternoon. Discussed with primary internal medicine team.
Data Reviewed
-
Radiology: Image Personally Visualized and interpreted
CT Scan: Image Personally Visualized and interpreted and Report Reviewed by me
Old Records: Requested
-
-
Thank you for consultation and allowing me to participate in the patient's care. Please call the pest control operator GI physician during the after hours with any questions or concerns.
--- NOTE | 2024-04-11 16:43 | PTOTSP ---
ST Acute Care Evaluation
Pt currently presents with clinical signs of suspected mild pharyngeal dysphagia as evidenced by occasional throat clearing s/p ingestion of liquids.
Recommendations:
- Initiate PO diet of REGULAR SOLIDS and THIN LIQUIDS with meds as tolerated.
- Aspiration and reflux precautions: Pt needs FULL tray set-up; fully awake, alert, and upright for all meals and for 60 minutes after PO intake; small bites/sips; encourage PO intake; eat/drink slowly.
- TECHNICIAN SUBMARINE CABLE EQUIPMENT to f/u re: diet tolerance and to determine if pt would benefit from an instrumental swallow study.
- TECHNICIAN SUBMARINE CABLE EQUIPMENT to monitor cognitive function and assess further if deemed warranted.
[2024-04-11] MEDS: LOVENOX 40 MG SC (19:20)
[2024-04-11] MEDS: CITROMA 300 ML PO (19:21)
[2024-04-11] MEDS: LIPITOR 20 MG PO (19:21)
--- NOTE | 2024-04-11 19:30 | PTCARENOTE ---
CT scan completed this am, drank full contrast. 1 unit PRBCs infused with out difficulty. IVF infusing as ordered. CLD tolerated. Grossly incontinent of urine- bladder scanned 100ml randomly. Bowel regimen given this am and FL Dulcolax this pm.
Rectal voult is full of stool - sat on commode for about 30min. Just started Mag citron. Pleasant denies pain/ SR/ST 90s.
[2024-04-11] MEDS: ANUSOL HC 25 MG RECTAL (22:42)
[2024-04-12] VITALS (13 sets, daily range): BP systolic 115–160; BP diastolic 42–102; PULSE 78; BMI 26.1
--- NOTE | 2024-04-12 02:37 | PTCARENOTE ---
Assume care from AM RN. AAOx1, forgetful, confused and anxious at times. NSR in the monitor and +1 BLLE edema. Pt had 10 beat run of SVT . FEED ELEVATOR WORKER public administration teacher notified. Shallow breathing, diminished lungs sounds, SaO2 93% RA. Pt desaturates when sleeping to
the high 80's, placed on 2L NC HS. dyspneic w/ exertion. Pt had a moderate loose stool. abd soft. Q2 turn. Call peng within reach and bed alarm placed.
--- NOTE | 2024-04-12 04:22 | PTCARENOTE ---
Addendum entered by Carlos Meza RN 04/12/24 05:31:
Pt was able to calm down and became pleasant again with the precess of her sister.
Original Note:
Pt has been pleasant for most of the shift but woke up being verbally and physically aggressive towards staff. Pt is AAOX1. Pt refusing care and want to leave. Family member was notified about condition and will come to calm pt. will continue w/ tx
plan.
[2024-04-12] MEDS: NSS 1000 IV ×2 (05:20→22:17)
[2024-04-12 05:49] LABS: Blood Urea Nitrogen 12 mg/dl (7-17); Calcium 7.4 mg/dl (8.4-10.2); Carbon Dioxide 29 mmol/L (22-30); Chloride 99 mmol/L (98-107); Estimated Creatinine Clearance 63 ml/min; Glucose 87 mg/dl (70-99); Magnesium 2.1 mg/dl (1.6-2.3); Potassium 4.2 mmol/L (3.5-5.1); Sodium 134 mmol/L (135-145); eGFR > 60.00
[2024-04-12 05:55] LABS: Hematocrit 23.8 % (37.0-47.0); Hemoglobin 7.5 g/dL (12.0-16.0); Mean Corp Hgb Conc. 31.5 g/dL (33.0-37.0); Mean Corpuscular Hgb 28.8 pg (27.0-31.0); Mean Corpuscular Volume 91.5 fL (81.0-99.0); Mean Platelet Volume 10.7 fL (7.4-10.4); Platelet Count 167 10^3/uL (130-400); Red Cell Dist. Width 22.1 % (11.5-14.5)
--- NOTE | 2024-04-12 06:41 | W.PN.HOSP.TC ---
Today's Communication/Plan
-
gentle IV hydration
clear liquid diet for today, advance diet as tolerated tomorrow
cont bowel regimen as per GI
Chest US and ECHO tomorrow as per pulm
Encourage Incentive Spirometer use
wean O2 as tolerated
PT/OT
Monitor H&H transfusion goal >7
Assessment / Plan
Assessment / Plan
Physical Exam
General: Pallor+, cachectic+, no cyanosis or jaundice.
HEENT: Throat clear. PERRLA Normocephalic atraumatic
NECK: Supple. No JVD Carotid Bruits
RESPIRATORY: Left sided basilar crackles
CVS: S1, S2 normal. RRR. No murmur, rub or gallop.
ABDOMEN: Soft, non-tender. No distension. BS+/normal.
EXTREMITIES: No peripheral cyanosis, lower ext swelling edema +1 b/l.
HORIZONTAL BORING MILL OPERATOR: Awake Alert Conversant Coherent
IMPRESSION:
78F MDS CAD CABG mo artic insuff HTN Hypothyroidism GERD Breast Ca s/p rad here for evaluation weakness failure to thrive. Referred to ED by her Oncologist during a follow up visit. Prior to visit patient has been at [facility] rehab for a few
weeks following Hospitalization at [place] due to pneumonia and possibly pulm edema that occurred after blood transfusion during her last chemo session. Since her hospitalization patient has been wheelchair bound and Oxygen dependent- prior to
event she was ambulatory with cane and did not require oxygen. Per sister patient has had multiple transfusions over the past few months due to MDS, with the longest period between transfusions 2 weeks. Patient has also had a significant loss of
appetite over the last month, losing 30 pounds in the process. ED eval was notable for hyponatremia 127 and anemia hgb 7.7. Vitals stable afebrile. Patient lethargic confused was able to report stomach pain with some tenderness, details sparse
due to lethargy. Patient herself unable to provide history. History provided by her sister EVA Amador.
PLAN:
#Hyponatremia significantly improved, mild at this time
Suspect due to low volume poor oral intake
received IVF NS bolus 500 cc in ED
Cont gentle IV NS hydration 60 cc/h
Na since improved
cont IVF for now pending improvement in oral intake
#Anemia
#MDS
#Failure to thrive
#Poor appetite, abd pain
Monitor H&H
04/11 received 1PRBC for Hgb 6.8 good post-transfusion response noted Hgb 7.5
Oncology eval appreciated transfuse prn hgb<7
ST appreciated appropriate for regular diet with thin liquids (restricted to clear liquid for now d/t fecal impaction since resolved, advance diet as tolerated tomorrow 04/13 per GI)
PT/OT appreciated SNF rehab
Daily Ensure Vanilla supplement
CT abd/pelvis IV and oral contrast appreciated the following:
-Complex left pleural effusion with pleural thickening versus debris along the pleural surface. Adjacent compressive atelectasis.
-Trace right pleural effusion.
-Small hiatal hernia.
-Mild to moderate fecal burden. Moderate solid fecal burden in the moderately distended rectum, consistent with impaction.
-No bowel obstruction.
-Eccentric wall thickening involving the cecum/ascending colon.
-Small left ovarian cyst measuring 13 mm.
#complex left pleural effusion w adjacent compressive atelectasis as noted in CT
encourage Incentive spirometer use
Pulm eval appreciated
-Venous Duplex neg for DVT
-Follow up ECHO and Chest US AM, possible thoracentesis depending on findings and if pt is agreeable
#fecal impaction and eccentric wall thickening cecum ascending colon as noted on CT.
#Constipation/fecal impaction resolved with bowel regimen and milk and molasses enema as per GI
GI eval appreciated
cont bowel regimen as per GI
clear liquid diet for today, advance as tolerated tomorrow 04/13/24
GI since signed off, recommended to re-consult when pulmonary workup completed and pulm status optimized for colonoscopy
#Acute Metabolic Encephalopathy
#Lethargy since improved
#Possible Hospital Associated Delirium (patient agitated confused, staff required family's assistance to redirect certified endoscopy technician 04/12)
aspiration precautions
Chest X-ray results remain pending
VBG wnl
Diet advanced to clear liquid with improvement in mental status
maintain aspiration precautions
Speech eval appreciated as above
Seroquel 25 mg HS started 04/12 monitor and adjust/taper as necessary/tolerated
#CAD CABG
#HTN
cont home ASA
cont home Metoprolol with holding parameters
#Hypothyroidism
cont home synthroid
TSH appreciated mild elevation 7.10 but T4 wnl
recommend repeat TFTs in 1 month follow up
dvt ppx Lovenox
DNR
discussed with patient and patient's sister Marjorie VELASQUEZ
I spent a total of 50 minutes with the patient or on the floor. More than 50% of this time involved counseling and coordination of care.
Anticipated Discharge: > 48 hours
Subjective/Interval History
-
Date of Service: April 12, 2024
Seen and examined at bedside in no acute distress sitting up comfortably in bed. Overall patient reports feeling well. Appetite however remains poor on clear liquid diet.
Objective Data
-
Labs:
Laboratory Results
04/12/24
05:18
WBC 5.0
Hgb 7.5 L
Hct 23.8 L
Plt Count 167
Sodium 134 L
Potassium 4.2
Chloride 99
Carbon Dioxide 29
BUN 12
Creatinine 0.5 L
Glucose 87
Calcium 7.4 L
Vital Signs:
Vital Signs
Temp Pulse Resp BP Pulse Ox
97.7 F 77 25 119/42 96
04/12/24 03:38 04/12/24 02:00 04/12/24 02:00 04/12/24 02:00 04/12/24 02:00
I&O
04/10/24 04/11/24 04/12/24
06:59 06:59 05:59
Intake Total 500 / 500 2730 / 2730
Balance 500 / 500 2730 / 2730
[2024-04-12] MEDS: NSS (PRESERVATIVE FREE) 10 ML IV (08:41)
[2024-04-12] MEDS: MIRALAX 17 GRAMS PO (08:41)
[2024-04-12] MEDS: ASPIR LOW (ENTERIC COATED) 81 MG PO (08:42)
[2024-04-12] MEDS: SENOKOT-S 1 TABLET PO ×2 (08:42→20:23)
[2024-04-12] MEDS: PROTONIX IV 40 MG IV (08:42)
[2024-04-12] MEDS: LOPRESSOR 12.5 MG PO ×2 (08:42→20:23)
[2024-04-12] MEDS: COMPAZINE 5 MG IV (10:11)
--- NOTE | 2024-04-12 11:59 | W.PN.GI.CBS2 ---
Today's Communication / Plan
-
Miralax purge today and then may start Miralax 17 gm BiD tomorrow. May stop ongoing MoM enemas. Plan for colonoscopy prior to discharge. Rest of care as outlined below. Will sign-off but please call back once patient has been optimized from a
pulmonary standpoint.
Assessment / Plan
-
Ms Ball is a 78 y.o female with past medical history of HTN, hypothyroidism, CAD s/p CABG, aortic insufficiency, breast cancer (s/p XRT), and recently diagnosed MDS who presented to the ED at the direction of her Oncologist due to concern for
weakness and failure to thrive. Found to CT Abd/pelvis with increased, moderate stool burden and fecal impaction along with eccentric wall thickening in the cecum/ascending colon for which GI has been consulted.
#Significant Stool [place] on CT Imaging
#Chronic, Severe Constipation
#Hx of Colon Cancer (s/p resection)
#30 lb Unintentional Weight Loss
#Failure to Thrive
#Normocytic Anemia
#Hx of MDS (on chemo/azacitidine)
#Hypoxic Respiratory Failure #Complex L Pleural Effusion
Impression: Patient presenting with weakness and concern for failure to thrive along with unintentional weight loss of 30 lbs on admission. Prior hospitalization at [facility] a few weeks ago for L-sided pneumonia (details unclear). CT
Abd/pelvis 04/11 revealing a large complex pleural effusion along with moderate stool burden throughout the colon and rectum concerning for a fecal impaction along with abnormal, eccentric bowel wall thickening of the cecum and ascending colon. No
signs of GI bleeding, however patient reports a history of colon cancer > 10 yrs ago for which she underwent surgery at [facility]. Personally reviewed CT imaging and unable to fully assess any evidence of a prior colonic
anastomosis, only noting significant stool burden. Reportedly, she denies any follow-up surveillance colonoscopy after her surgery (reported by both patient and family). Need to obtain further records regarding this. For now would treat her severe
constipation and fecal impaction with enemas along with bowel purge for clean-out to prevent any complication (ie stercoral ulcerations, etc). Ultimately, she may benefit from a colonoscopy while inpatient but would defer any plans for any
endoscopic intervention at this time pending optimization of her pulmonary status.
Recommendations:
- Continue CLD today, may ADAT tomorrow
- Give miralax today for further bowel purge as unable to tolerate Mag citrate
- Then, start Miralax 17 gm BiD tomorrow as bowel regimen while inpatient
- Can stop further MoMs given multiple bowel movements
- No signs of overt GI bleeding at this time
- Trend Hgb with serial CBC
- Will need to obtain OSH records ([facility]) given hx of colon cancer in the past with reported prior surgery
- Pulmonary planning on obtaining TTE and Chest US on tomorrow, on 04/13, with possible repeat thoracentesis given L pleural effusion noted on CT
- Once patient is optimized from a pulmonary standpoint, could consider a colonoscopy while inpatient prior to discharge given her hx of colon cancer and abnormal CT imaging. However, defer any plans for any endoscopic evaluation at this time
- Once optimized, will consider colonoscopy this admission given abnormal CT imaging and history of CRC. Will require two-day prep for colonoscopy
- Hematology following given her hx of MDS, appreciate recs
- Rest of care per primary team
Discussed with patient's family this morning. Discussed with primary internal medicine team.
GI team will sign-off. Please re-engage once patient has been optimized and can the consider colonoscopy prior to dischage.
Subjective
Subjective
Date of Service: April 12, 2024
- No acute events overnight
Feeling much better this morning, had multiple BMs overnight and this morning after MoM enemas. Wasn't able to tolerate Mag citrate due to taste. Otherwise, denies any further abdominal discomfort/pain, nausea or vomiting. Significantly less
distended. No bloody or dark black stools.
Objective
Data Reviewed
Laboratory Data:
Laboratory Results
04/12/24 05:18
04/12/24 05:18
Laboratory Results
Magnesium 2.1 mg/dl (1.6-2.3) 04/12/24 05:18
Total Bilirubin 1.7 mg/dl (0.2-1.3) H 04/10/24 18:06
AST 37 U/L (14-36) H 04/10/24 18:06
ALT 33 U/L (0-35) 04/10/24 18:06
Alkaline Phosphatase 78 U/L (38-126) 04/10/24 18:06
Lipase 60 U/L (23-300) 04/10/24 18:06
Vital Signs and I&O:
Vital Signs
Temp Pulse Resp BP Pulse Ox
98.3 F 72 14 115/50 96
04/12/24 08:38 04/12/24 10:07 04/12/24 10:07 04/12/24 10:07 04/12/24 11:47
I&O
04/11/24 04/12/24 04/13/24
07:59 06:59 06:59
Intake Total 300 / 300
Balance 300 / 300
--- NOTE | 2024-04-12 12:33 | W.PN.PUL3 ---
Today's Communication / Plan
-
Echo, Doppler in a.m.
Left chest ultrasound in a.m.
Possible thoracentesis depending on findings
Assessment
-
78-year-old female with history of MDS requiring transfusion in the past, failure to thrive, 30 pound weight loss, history of coronary disease, valvular disease and distant history of breast cancer who presents with failure to thrive, fatigue,
anemia requiring transfusion. We are asked to comment on oxygen requirement and abnormal imaging
Acute hypoxic respiratory insufficiency, saturation 87%
Requiring 2 L
Left pleural effusion per abdominal imaging 04/11/2024
Per patient, history of pleural effusion drained in the past
Details unclear, patient not a good historian
Recent left-sided pneumonia treated at [facility]
Details unclear
MDS/pancytopenia
Requiring intermittent transfusion
On chemotherapy/azacitidine
Conditions present prior to admission
Coronary disease, bypass surgery
Hypertension
Hypothyroidism
GERD
History of breast cancer 2011, radiation
30 pound weight loss
DNR
Plan/recommendations
At this time, patient appears to be improved objectively and subjectively
Status post 1 unit transfusion 04/11
Less fatigued and more conversant today
Salient features include pleural effusion at the left base per abdominal imaging, questionable history of recent pneumonia with questionable thoracentesis (sister unaware)
She is requiring 2 L of oxygen
EKG with nonspecific ST changes
Chest x-ray with mild interstitial changes
Moving forward
Continue with management per hematology
According to sister, she is more alert and less fatigued
On exam there is a left pleural effusion
Check chest ultrasound and echocardiogram 04/13. I ordered
When discussed possible need for thoracentesis, patient was not agreeable. She states it was painful in the past
This will be an ongoing discussion about
Will obtain records from [facility] specifically any prior thoracentesis which has been done
Patient, nor sister are aware of any recent trauma or falls
Patient is also high risk for thromboembolic disease
Consider echocardiogram/Doppler on Saturday, I ordered
Will try to obtain further records from [facility]. I requested
Remains on DVT prophylaxis
DNR status noted. Sister describes slow decline over the last month
Reviewed with family at bedside
Subjective Data
-
Date of Service:
Date of Service: April 12, 2024
Subjective:
Patient actually appears to be stronger today. Sister and other family members at bedside. Abdominal discomfort also improved, had bowel movement according to sister. Patient denies chest pain, shortness of breath, nausea
Objective Data
Data Reviewed
Vital Signs / I&O / Oxygen:
Vital Signs
Temp Pulse Resp BP Pulse Ox
98.3 F 72 14 115/50 96
04/12/24 08:38 04/12/24 10:07 04/12/24 10:07 04/12/24 10:07 04/12/24 11:47
Intake and Output
04/11/24 04/12/24 04/13/24
07:59 06:59 06:59
Intake Total 300 / 300
Balance 300 / 300
SaO2 96
Nasal Cannula flow liters per 2
minute
Physical Exam
General: Comfortable
HEENT: Normocephalic and Anicteric
Cardiovascular: S1-S2, Regular Rhythm and Murmur (n)
Respiratory: Wheeze (n), Crackles (n), Rhonchi (n), Non-Labored Respirations and Other (Slight decreased left base)
GI: Soft, Non Distended and Non Tender
Neurology: Awake, Alert and No Motor Deficits (Generally weak, moves all extremities)
Skin: Cyanosis (n), Jaundice (n) and Rash (n)
Labs/Micro/Reports
Lab Data
04/12/24 05:18
04/12/24 05:18
[2024-04-12] MEDS: GAVILAX 238 GM PO (16:18)
[2024-04-12] MEDS: LOVENOX 40 MG SC (17:03)
[2024-04-12] MEDS: LIPITOR 20 MG PO (17:03)
[2024-04-12] MEDS: ANUSOL HC 25 MG RECTAL (21:35)
[2024-04-12] MEDS: SEROQUEL 25 MG PO (21:35)
[2024-04-13] VITALS (12 sets, daily range): BP systolic 108–154; BP diastolic 39–52; BMI 26.6
--- NOTE | 2024-04-13 02:15 | PTCARENOTE ---
Pt AAOx1-2, pleasant, cooperative. Denies complaints at this time. Inc of urine, hygiene care performed. Pt able to take her PO meds without complication. SR on monitor. Assessment as documented. Bed alarm in place for pt safety. Pt using call peng
appropriately.
[2024-04-13] MEDS: SYNTHROID 100 MCG PO (05:40)
[2024-04-13 06:11] LABS: Hematocrit 25.9 % (37.0-47.0); Hemoglobin 7.9 g/dL (12.0-16.0); Mean Corp Hgb Conc. 30.5 g/dL (33.0-37.0); Mean Corpuscular Hgb 28.6 pg (27.0-31.0); Mean Corpuscular Volume 93.8 fL (81.0-99.0); Mean Platelet Volume 10.6 fL (7.4-10.4); Platelet Count 175 10^3/uL (130-400); Red Blood Cell Count 2.76 10^6/uL (4.20-5.40); Red Cell Dist. Width 22.2 % (11.5-14.5); White Blood Cell Count 5.4 10^3/uL (4.8-10.8)
[2024-04-13 06:52] LABS: Blood Urea Nitrogen 10 mg/dl (7-17); Calcium 7.4 mg/dl (8.4-10.2); Carbon Dioxide 29 mmol/L (22-30); Chloride 100 mmol/L (98-107); Estimated Creatinine Clearance 63 ml/min; Glucose 116 mg/dl (70-99); Magnesium 2.3 mg/dl (1.6-2.3); Potassium 3.8 mmol/L (3.5-5.1); Sodium 137 mmol/L (135-145); eGFR > 60.00
--- NOTE | 2024-04-13 07:56 | W.PN.PUL3 ---
Today's Communication / Plan
-
Awaiting thoracentesis of left sided complex pleural effusion
Obtain prior medical records with any recent echocardiogram + procedures including thoracentesis that the patient reports that she had
PT/OT
Consider CTA chest to rule out acute PE especially if saturations do not improve s/p thoracentesis; likelihood of an acute PE is low given she is not tachycardic and RV was normal size and function on TTE
May ultimately need right heart catheterization as PH is severe on echo from today
Before any invasive procedures are performed, it would be reasonable to have a goals of care discussion first
Assessment
-
78-year-old female with history of MDS requiring transfusion in the past, failure to thrive, 30 pound weight loss, history of coronary disease, valvular disease and distant history of breast cancer who presents with failure to thrive, fatigue,
anemia requiring transfusion. We are asked to comment on oxygen requirement and abnormal imaging
Impression:
Acute hypoxic respiratory insufficiency, saturation 87%
Requiring 2 L now on room air (Wells score is low)
Left pleural effusion per abdominal imaging 04/11/2024
Per patient, history of pleural effusion drained in the past
Details unclear, patient is a poor historian
Recent left-sided pneumonia treated at [facility]
Details unclear
MDS/pancytopenia
Requiring intermittent transfusion
On chemotherapy/azacitidine
Pulmonary hypertension with PASP: 63 mmHg from transthoracic echo on 04/13/2024 (unknown chronicity) - due to group II disease from valvular heart disease and diastolic heart failure
Eccentric wall thickening involving the cecum/ascending colon - this is concerning for malignancy
Conditions present prior to admission
Coronary disease, bypass surgery
Hypertension
Hypothyroidism
GERD
History of breast cancer 2011, radiation
30 pound weight loss
DNR
Plan/recommendations
At this time, patient continued to be improved both objectively and subjectively
Currently on room air with saturations 91%, and she is not dyspneic at rest
Status post 1 unit transfusion 04/11 raising Hb from 6.8 to 7.5 on AM of 04/12
Salient features include pleural effusion at the left base per abdominal imaging, questionable history of recent pneumonia with questionable thoracentesis (sister unaware)
EKG with nonspecific ST changes
Chest x-ray with mild interstitial changes
Moving forward
Continue with management per hematology
Dr. Guerra spoke with patient's sister, and per the sister, the pt is more alert and less fatigued
Left chest US done today (04/13/2024) shows a complex left-sided pleural effusion with debris measuring 10.9 x 5.2 x 5.7 cm --> thoracentesis is recommended
IR consulted --> send cell count differential, glucose, protein, albumin, triglyceride, amylase, fluid culture, fungus culture, AFB + cytopathology
She did say that she had severe pain from her last thoracentesis, but with further discussion and explaining that lidocaine will be used and other pain medications are available she was amenable to obtaining a repeat thoracentesis
Keep SpO2 >90-94% with supplemental O2 as needed
Check ambulatory pulse oximetry prior to discharge
Will obtain records from [facility] specifically any prior thoracentesis which has been done
Patient, nor sister are aware of any recent trauma or falls
Patient is also high risk for thromboembolic disease
Transthoracic echo done today (04/2024) showing mild�moderate MR with mild�moderate AI, small pericardial effusion with grade 2 diastolic dysfunction with increased LV filling pressures with preserved LVEF at 50-55% with normal RV size and function
and pH with estimated PASP: 63 mmHg
Will try to obtain further records from [facility]. Dr. Guerra had previously requested
Given her abnormal CT abdomen/pelvis from 04/11/2024 with eccentric wall thickening involving the cecum/ascending colon, would recommend colonoscopy
- GI has been consulted with plans for eventual colonoscopy once optimized, pulmonary fleming. She is currently on room air, albeit saturating low at 91%. Transthoracic echo has multiple concerning findings mainly her severe pulmonary hypertension
(unknown chronicity) with grade II diastolic dysfunction and VHD; she also has a left-sided pleural effusion which is awaiting thoracentesis.
- Hopefully the thoracentesis will improve her respiratory status
- If she is still remaining hypoxic despite thoracentesis then would consider CTA chest to rule out acute PE, and she may ultimately require right heart catheterization +/- VQ scan --> she currently does not have signs of acute right sided heart
failure
- Prior medical records need to be obtained to compare to any prior echo she has received as well as get more information of her previous thoracentesis
DVT prophylaxis: LMWH
DNR status noted. Sister describes slow decline over the last month
Dr. Guerra previously reviewed with family at bedside
Pulmonary service will continue to follow along
Total time spent today was 51 minutes for this encounter. Time includes reviewing laboratory test/imaging results, reviewing pertinent medical records, obtaining and reviewing medical history, performing an appropriate exam, ordering medications,
tests and procedures. Time also includes documentation of this encounter, coordinating patient care and communicating with other healthcare professionals. Total time does not include separately billed tests performed on this date of service.
Subjective Data
-
Date of Service:
Date of Service: April 13, 2024
Chief Complaint: Pulmonary Follow Up
Subjective:
Patient was seen and evaluated today at bedside. She is resting in bed in no acute distress on room air saturating 91%. Heart rate 88 and BP 134/94. She denies chest pain, GUTIERRES, abdominal pain, nausea, fevers or chills.
Review of Systems
General: Other (Negative unless mentioned above)
Objective Data
Data Reviewed
Vital Signs / I&O / Oxygen:
Vital Signs
Temp Pulse Resp BP Pulse Ox
93.7 F L 70 25 148/46 98
04/13/24 04:44 04/13/24 06:00 04/13/24 06:00 04/13/24 06:00 04/13/24 06:00
Intake and Output
04/12/24 04/13/24 04/14/24
06:59 06:59 06:59
Intake Total 1420 / 1420
Balance 1420 / 1420
SaO2 98
Nasal Cannula flow liters per 2
minute
Physical Exam
General: Respiratory Distress (negative), Comfortable, Chills (negative) and Sweats (negative)
HEENT: Normocephalic and Anicteric
Cardiovascular: S1-S2, Murmur (ROBSON heard at RUSB, grade III/) and Rub (negative)
Respiratory: Wheeze (n), Crackles (Left hemithorax), Rhonchi (n), Non-Labored Respirations and Other (Diminished breath sounds at the left base)
GI: Soft, Non Distended, Non Tender and Normal Bowel Sounds
Neurology: Awake, Alert and No Motor Deficits (Generally weak, moves all extremities)
Skin: Warm, Dry, Cyanosis (n), Jaundice (n) and Rash (n)
Labs/Micro/Reports
Lab Data
04/13/24 05:49
04/13/24 05:49
[2024-04-13] MEDS: ASPIR LOW (ENTERIC COATED) PO ×2 (08:04→08:47)
[2024-04-13] MEDS: MIRALAX PO ×2 (08:04→08:47)
[2024-04-13] MEDS: NSS (PRESERVATIVE FREE) 10 ML IV (08:04)
[2024-04-13] MEDS: LOPRESSOR PO ×2 (08:04→08:47)
[2024-04-13] MEDS: SENOKOT-S PO ×2 (08:04→08:46)
[2024-04-13] MEDS: PROTONIX IV 40 MG IV (08:05)
--- NOTE | 2024-04-13 11:04 | W.PN.HOSP.TC ---
Today's Communication/Plan
-
Aggressive bowel regimen
ECHO
US chest pending
advance diet
reduce seroquel dose
OOB/PT
Demario hugger if needed
Assessment / Plan
Assessment / Plan
Physical Exam
General: Pallor+, cachectic+, no cyanosis or jaundice.
HEENT: Throat clear. PERRLA Normocephalic atraumatic
NECK: Supple. No JVD Carotid Bruits
RESPIRATORY: Left sided basilar crackles
CVS: S1, S2 normal. RRR. No murmur, rub or gallop.
ABDOMEN: Soft, non-tender. No distension. BS+/normal.
EXTREMITIES: No peripheral cyanosis, lower ext swelling edema +1 b/l.
SHREDDING MACHINE TENDER: Awake Alert Conversant Coherent
IMPRESSION:
78F MDS CAD CABG mo artic insuff HTN Hypothyroidism GERD Breast Ca s/p rad here for evaluation weakness failure to thrive. Referred to ED by her Oncologist during a follow up visit. Prior to visit patient has been at [facility] rehab for a few
weeks following Hospitalization at [place] due to pneumonia and possibly pulm edema that occurred after blood transfusion during her last chemo session. Since her hospitalization patient has been wheelchair bound and Oxygen dependent- prior to
event she was ambulatory with cane and did not require oxygen. Per sister patient has had multiple transfusions over the past few months due to MDS, with the longest period between transfusions 2 weeks. Patient has also had a significant loss of
appetite over the last month, losing 30 pounds in the process. ED eval was notable for hyponatremia 127 and anemia hgb 7.7. Vitals stable afebrile. Patient lethargic confused was able to report stomach pain with some tenderness, details sparse
due to lethargy. Patient herself unable to provide history. History provided by her sister EVA Amador.
PLAN:
#Hyponatremia significantly improved, mild at this time
Suspect due to low volume poor oral intake
received IVF NS bolus 500 cc in ED
Stop IV NS hydration 60 cc/h
Na since improved
#Anemia
#MDS
#Failure to thrive
#Poor appetite, abd pain
Monitor H&H
Hgb at 7.9 s/p 1u of PRBC so far
Oncology eval appreciated transfuse prn hgb<7
ST appreciated appropriate for regular diet with thin liquids (restricted to clear liquid for now d/t fecal impaction since resolved, advance diet as tolerated tomorrow 04/13 per GI)
PT/OT appreciated SNF rehab
Daily Ensure Vanilla supplement
#Complex left pleural effusion w adjacent compressive atelectasis as noted in CT
encourage Incentive spirometer use
Pulm eval appreciated
-Venous Duplex neg for DVT
-Follow up ECHO and Chest US AM, possible thoracentesis depending on findings
#fecal impaction and eccentric wall thickening cecum ascending colon as noted on CT.
#Constipation/fecal impaction resolved with bowel regimen and milk and molasses enema as per GI
GI eval appreciated
cont bowel regimen as per GI
clear liquid diet for today, advance as tolerated tomorrow 04/13/24
GI since signed off, recommended to re-consult when pulmonary workup completed and pulm status optimized for colonoscopy
#Acute Metabolic Encephalopathy
#Lethargy
#Possible Hospital Associated Delirium
aspiration precautions
VBG wnl
Diet advanced
maintain aspiration precautions
Speech eval appreciated as above
Reduce Seroquel dose as with Lethargy and sleepiness this morning
#Hypothermia
-recheck temp. Demario beaner if needed.
-BP stable.
#CAD CABG
#HTN
cont home ASA
cont home Metoprolol with holding parameters
#Hypothyroidism
cont home synthroid
TSH appreciated mild elevation 7.10 but T4 wnl
recommend repeat TFTs in 1 month follow up
dvt ppx Lovenox
DNR
discussed with patient's sister Marjorie VELASQUEZ and other sister at bedside in details.
Anticipated Discharge: > 48 hours
Subjective/Interval History
-
Date of Service: April 13, 2024
sleepy this morning
per sister, pt more lethargic this morning
talked for few minutes -no chest pain or sob. States she is tired
did not eat breakfast
remains on oxygen
found to be hypothermic this morning
Objective Data
-
Labs:
Laboratory Results
04/13/24
05:49
WBC 5.4
Hgb 7.9 L
Hct 25.9 L
Plt Count 175
Sodium 137
Potassium 3.8
Chloride 100
Carbon Dioxide 29
BUN 10
Creatinine 0.6
Glucose 116 H
Calcium 7.4 L
Vital Signs:
Vital Signs
Temp Pulse Resp BP Pulse Ox
94.2 F L 70 25 148/46 98
04/13/24 07:07 04/13/24 06:00 04/13/24 06:00 04/13/24 06:00 04/13/24 06:00
I&O
04/12/24 04/13/24 04/14/24
06:59 06:59 06:59
Intake Total 1420 / 1420
Balance 1420 / 1420
Data Reviewed
-
Total Time Spent with Patient (in minutes): 58
--- NOTE | 2024-04-13 17:07 | PTCARENOTE ---
pt hypothermic this am. discussed with hospitalist. rectal temperature probe inserted and pt not hypothermic. see nursing worklist. assessment as charted. pts sisters in room most of day. pt was drowsy and lethargic this am but is now more awake,
pleasant and conversant. currently oriented x 2.
--- NOTE | 2024-04-13 17:24 | CM ---
Patient with Hx MDS on chemo with Dx Anemia, MDS, Failure to thrive, Complex left pleural effusion, Constipation/fecal impaction, KATHY possible delirium, hypothermia. O2 2L this am. Diet advanced today to regular. Chest ultrasound today. PT/OT
recommend skilled rehab.
SNF referrals reviewed. No accepting facilities at this time. [facility] [place] no available bed. [facility] interested; asking if patient will receive further chemo, and how many days she was at her prior SNF [facility]. No response
[facility].
Met with patient and her 2 sisters Marjorie VELASQUEZ & Ashley VELASQUEZ this am; they are interested in the patient going to SNF for rehab and probably half-way care. Discussed that SNF may need LTC application in advance and that they will need to know if
patient has any savings to pay for LTC vs need to apply for MA.
Plan follow up with [facility] and [facility].
[2024-04-13] MEDS: LIPITOR 20 MG PO (18:06)
[2024-04-13] MEDS: LOVENOX 40 MG SC (18:06)
[2024-04-13] MEDS: LOPRESSOR 12.5 MG PO (20:19)
[2024-04-13] MEDS: SENOKOT-S 1 TABLET PO (20:20)
[2024-04-13] MEDS: MIRALAX 17 GRAMS PO (20:20)
[2024-04-13] MEDS: ANUSOL HC 25 MG RECTAL (22:26)
[2024-04-13] MEDS: SEROQUEL 12.5 MG PO (22:26)
[2024-04-14] VITALS (31 sets, daily range): BP systolic 71–149; BP diastolic 40–94; PULSE 76–77; O2SAT 98; BMI 26.6
[2024-04-14 06:12] LABS: Hematocrit 24.2 % (37.0-47.0); Hemoglobin 7.5 g/dL (12.0-16.0); Mean Corpuscular Volume 93.4 fL (81.0-99.0); Mean Platelet Volume 10.9 fL (7.4-10.4); Platelet Count 145 10^3/uL (130-400); Red Blood Cell Count 2.59 10^6/uL (4.20-5.40); Red Cell Dist. Width 21.6 % (11.5-14.5); White Blood Cell Count 4.7 10^3/uL (4.8-10.8)
[2024-04-14 06:30] LABS: Blood Urea Nitrogen 9 mg/dl (7-17); Calcium 7.5 mg/dl (8.4-10.2); Carbon Dioxide 31 mmol/L (22-30); Chloride 100 mmol/L (98-107); Estimated Creatinine Clearance 63 ml/min; Glucose 94 mg/dl (70-99); Magnesium 2.2 mg/dl (1.6-2.3); Sodium 138 mmol/L (135-145); eGFR > 60.00
[2024-04-14] MEDS: LOPRESSOR 12.5 MG PO (07:23)
[2024-04-14] MEDS: SENOKOT-S 1 TABLET PO (07:23)
[2024-04-14] MEDS: ASPIR LOW (ENTERIC COATED) 81 MG PO (07:23)
[2024-04-14] MEDS: SYNTHROID 100 MCG PO (07:23)
[2024-04-14] MEDS: PROTONIX IV 40 MG IV (07:24)
[2024-04-14] MEDS: MIRALAX 17 GRAMS PO (07:24)
[2024-04-14] MEDS: NSS (PRESERVATIVE FREE) 10 ML IV (07:24)
--- NOTE | 2024-04-14 08:54 | PTCARENOTE ---
[facility] note: patient arrived to [facility] from IMU on Room air with SPO2 87-88%. Oxygen 2L via NC applied and SPO2 improved to 97-98%.
--- NOTE | 2024-04-14 09:22 | W.PN.PUL3 ---
Today's Communication / Plan
-
She is lethargic and had received Zyprexa overnight --> would discontinue this and continue to closely monitor with aspiration precautions and check ABG if mental status worsens
s/p thoracentesis of left sided complex pleural effusion --> follow up Cx and cyto
Obtain prior medical records with any recent echocardiogram + procedures including thoracentesis that the patient reports that she had
PT/OT
Consider CTA chest to rule out acute PE especially if saturations do not improve s/p thoracentesis; likelihood of an acute PE is low given she is not tachycardic and RV was normal size and function on TTE
May ultimately need right heart catheterization as PH is severe on echo from 04/13
Before any invasive procedures are performed, it would be reasonable to have a goals of care discussion first
Assessment
-
78-year-old female with history of MDS requiring transfusion in the past, failure to thrive, 30 pound weight loss, history of coronary disease, valvular disease and distant history of breast cancer who presents with failure to thrive, fatigue,
anemia requiring transfusion. We are asked to comment on oxygen requirement and abnormal imaging
Impression:
Acute hypoxic respiratory insufficiency, saturation 87%
Requiring 2 L now on room air (Wells score is low)
Left pleural effusion per abdominal imaging 04/11/2024
Per patient, history of pleural effusion drained in the past
Details unclear, patient is a poor historian
Recent left-sided pneumonia treated at [facility]
Details unclear
MDS/pancytopenia
Requiring intermittent transfusion
On chemotherapy/azacitidine
Pulmonary hypertension with PASP: 63 mmHg from transthoracic echo on 04/13/2024 (unknown chronicity) - due to group II disease from valvular heart disease and diastolic heart failure
Eccentric wall thickening involving the cecum/ascending colon - this is concerning for malignancy
Conditions present prior to admission
Coronary disease, bypass surgery
Hypertension
Hypothyroidism
GERD
History of breast cancer 2011, radiation
30 pound weight loss
DNR
Plan/recommendations
At this time, patient continued to be improved both objectively and subjectively-->although she did not get much sleep last night and obtained Seroquel overnight & that may be why shes sleepy this AM
Currently on 2L/min with saturations >90%, and she is not dyspneic at rest
Status post 1 unit transfusion on 04/11 raising Hb from 6.8 to 7.5 on AM of 04/12
Salient features include pleural effusion at the left base per abdominal imaging, questionable history of recent pneumonia with questionable thoracentesis (sister unaware)
EKG with nonspecific ST changes
Chest x-ray with mild interstitial changes
Moving forward
Continue with management per hematology
Dr. Guerra spoke with patient's sister and answered her questions
Left chest US done on 04/13/2024 showing a complex left-sided pleural effusion with debris measuring 10.9 x 5.2 x 5.7 cm --> zachariah performed this AM, removed 80cc of exudative bloody fluid
Follow up fluid culture, fungus culture, AFB + cytopathology --> given the low glucose with elevated LDH, there is concern this could be a malignant effusion
-Given that this left pleural fluid is complex and bloody, a fluid hematocrit was sent which was 1.8 which is not consistent with a hemothorax. If patient spikes fever then may consider chest tube to fully drain this collection however unclear if
patient would be amenable for this; at least this collection is not an empyema so no urgent need to drain this fully at this time; this will be an ongoing discussion
She did say that she had severe pain from her last thoracentesis, but with further discussion and explaining that lidocaine will be used and other pain medications are available she was amenable to obtaining a repeat thoracentesis
Keep SpO2 >90-94% with supplemental O2 as needed
Check ambulatory pulse oximetry prior to discharge
Will obtain records from [facility] specifically any prior thoracentesis which has been done
Patient, nor sister are aware of any recent trauma or falls
Patient is also high risk for thromboembolic disease
Transthoracic echo done on 04/13/2024 showed mild�moderate MR with mild�moderate AI, small pericardial effusion with grade 2 diastolic dysfunction with increased LV filling pressures with preserved LVEF at 50-55% with normal RV size and function and
pH with estimated PASP: 63 mmHg
Will try to obtain further records from [facility]. Dr. Guerra had previously requested
Given her abnormal CT abdomen/pelvis from 04/11/2024 with eccentric wall thickening involving the cecum/ascending colon, would recommend colonoscopy
- GI has been consulted with plans for eventual colonoscopy once optimized, pulmonary fleming. She is currently on room air, albeit saturating low at 91%. Transthoracic echo has multiple concerning findings mainly her severe pulmonary hypertension
(unknown chronicity) with grade II diastolic dysfunction and VHD; she also has a left-sided pleural effusion which is awaiting thoracentesis.
- Hopefully the thoracentesis will improve her respiratory status
- If she is still remaining hypoxic despite thoracentesis then would consider CTA chest to rule out acute PE, and she may ultimately require right heart catheterization +/- VQ scan --> she currently does not have signs of acute right sided heart
failure
- Prior medical records need to be obtained to compare to any prior echo she has received as well as get more information of her previous thoracentesis
DVT prophylaxis: LMWH
DNR status noted. Sister describes slow decline over the last month
Dr. Guerra previously reviewed with family at bedside
Pulmonary service will continue to follow along
Total time spent today was 53 minutes for this encounter. Time includes reviewing laboratory test/imaging results, reviewing pertinent medical records, obtaining and reviewing medical history, performing an appropriate exam, ordering medications,
tests and procedures. Time also includes documentation of this encounter, coordinating patient care and communicating with other healthcare professionals. Total time does not include separately billed tests performed on this date of service.
Subjective Data
-
Date of Service:
Date of Service: April 14, 2024
Chief Complaint: Pulmonary Follow Up
Subjective:
Patient was seen and evaluated today at bedside. She was somnolent but easily arousable but then quickly falls back asleep. Her sister, Gina, was at bedside and all questions were answered. She is currently on 2 L/min nasal cannula saturating
93%. Heart rate 71 and BP 130/43. Unable to obtain ROS given her acute clinical status.
Review of Systems
General: Unobtainable - Pat Unresp
Objective Data
Data Reviewed
Vital Signs / I&O / Oxygen:
Vital Signs
Temp Pulse Resp BP Pulse Ox
98 F 71 21 140/47 100
04/14/24 08:25 04/14/24 09:24 04/14/24 09:24 04/14/24 09:24 04/14/24 08:50
Intake and Output
04/13/24 04/14/24 04/15/24
06:59 06:59 06:59
Intake Total 1420 / 1420 640 / 640
Balance 1420 / 1420 640 / 640
SaO2 100
Nasal Cannula flow liters per 2
minute
Physical Exam
General: Respiratory Distress (negative), Comfortable, Chills (negative) and Sweats (negative)
HEENT: Normocephalic and Anicteric
Cardiovascular: S1-S2, Murmur (ROBSON heard at RUSB, grade III/) and Rub (negative)
Respiratory: Wheeze (n), Crackles (Bibasilar), Rhonchi (Right base), Non-Labored Respirations and Other (Diminished breath sounds at the left base)
GI: Soft, Non Distended, Non Tender and Normal Bowel Sounds
Neurology: Tremors (negative) and Lethargic (Easily arousable but then quickly falls back asleep)
Skin: Warm, Dry, Cyanosis (n), Jaundice (n) and Rash (n)
Labs/Micro/Reports
Lab Data
04/14/24 05:38
04/14/24 05:38
[2024-04-14 09:25] LABS: Body Fluid pH 7.27
--- NOTE | 2024-04-14 09:30 | PTOTSP ---
Speech Language Pathology
VIDEOFLUOROSCOPIC SWALLOWING EXAMINATION (VSE) completed. Overall, pt with mild oropharyngeal dysphagia. Slow oral phase with piecemeal deglutition at times. Suspect this related to drowsiness. Transient penetration noted x2 with only trace
intermittent pharyngeal residue.
Recommend:
(1) Regular solids/thin liquids
(2) Aspiration precautions: eat only when alert, ensure oral cavity clear post P.O. intake, slow rate
(3) Meds as tolerated
(4) SUBSCRIPTION CLERK to follow, likely briefly
[2024-04-14 09:37] LABS: Body Fluid Amylase 59 U/L; Body Fluid Glucose 58 mg/dl; Body Fluid Protein 3.9 g/dl; Body Fluid Triglycerides < 30 mg/dl
[2024-04-14 09:46] LABS: Body Fluid LDH 1391 U/L
--- NOTE | 2024-04-14 10:22 | W.PN.ONC ---
Today's Communication / Plan
-
Mgmt of pleural effusion/pulm HTN per pulmonary, s/p left thora this am (small volume, dark/bloody)
If performance status doesn't improve, will need to discuss goals of care, perhaps hospice
For now, transfuse hemoglobin less than 7g/dl platelet count less than 10K
Impression
Impression
Very poor risk MDS, tolerating azacitidine poorly
Significant decline in performance status
Pneumonia/pleural effusion
Deconditioning with prolonged rehabilitative stay
Remote breast carcinoma
Plan
Plan
Mgmt of pleural effusion/pulm HTN per pulmonary, s/p left thora this am (small volume, dark/bloody)
If performance status doesn't improve, will need to discuss goals of care, perhaps hospice
For now, transfuse hemoglobin less than 7g/dl platelet count less than 10K
Subjective/Objective
Subjective/Objective
she states that she feels like she's improving. no focal complaints/concerns
underwent left thoracentesis (x80cc dark bloody fluid) this am
Vital Signs:
Vital Signs
Temp Pulse Resp BP Pulse Ox
98 F 71 21 140/47 100
04/14/24 08:25 04/14/24 09:24 04/14/24 09:24 04/14/24 09:24 04/14/24 08:50
Lab Results:
Laboratory Data
WBC 4.7 10^3/uL (4.8-10.8) L 04/14/24 05:38
Hgb 7.5 g/dL (12.0-16.0) L 04/14/24 05:38
Plt Count 145 10^3/uL (130-400) 04/14/24 05:38
eGFR > 60.00 04/14/24 05:38
[2024-04-14 10:29] LABS: Body Fluid Mononuclear 74.2 %; Body Fluid Polymorphonuclear 25.8 %; Body Fluid WBC 621 /CUMM
[2024-04-14 10:32] LABS: Body Fluid Second Tech CF
--- NOTE | 2024-04-14 11:16 | CM ---
Patient with Hx Myelodysplastic syndrome on chemo with Dx Anemia, Failure to thrive, Complex left pleural effusion, KATHY possible delirium. O2 2L. Thoracentesis today. VSE today. PT/OT recommend skilled rehab.
SNF referrals reviewed. Declined by [facility].
Spoke with patient's sister Marjorie;
reviewed that all 3 SNFs declined. She has a SNF list that [facility] previously provided. Discussed local SNFs near [place] and provided [facility] ratings. She is not sure that they want the patient to return to [facility] for any further rehab
or LTC, and would like additional SNF referrals. 4 additional SNF referrals placed.
Spoke with Isabell Kuhn Director [facility]; the patient was at [facility] and went to their SNF on 04/01/24, and stayed until 04/10/24 when she was admitted here at . They are able to accept the patient back for rehab followed by
LTC if the family agrees.
Phone call to Isabell Nelson; left message re; referral.
Phone call to Isabell Noguera; left message re; referral.
Plan follow up SNF referrals.
[2024-04-14 11:46] LABS: Body Fluid Hematocrit 1.8 %
--- NOTE | 2024-04-14 12:28 | W.PN.HOSP.TC ---
Today's Communication/Plan
-
Trial of IV Lasix
Wean oxygen as tolerated
PT/OT
Await fluid study results
Pulmonary recs
Trend CBC daily
Assessment / Plan
Assessment / Plan
Physical Exam
General: Pallor+, cachectic+, no cyanosis or jaundice.
HEENT: Throat clear. PERRLA Normocephalic atraumatic
NECK: Supple. No JVD Carotid Bruits
RESPIRATORY: Left sided basilar crackles
CVS: S1, S2 normal. RRR. No murmur, rub or gallop.
ABDOMEN: Soft, non-tender. No distension. BS+/normal.
EXTREMITIES: No peripheral cyanosis, lower ext swelling edema +1 b/l.
SALES ATTENDANT BUILDING MATERIALS: Awake Alert Conversant Coherent
IMPRESSION:
78F MDS CAD CABG mo artic insuff HTN Hypothyroidism GERD Breast Ca s/p rad here for evaluation weakness failure to thrive. Referred to ED by her Oncologist during a follow up visit. Prior to visit patient has been at [facility] rehab for a few
weeks following Hospitalization at [place] due to pneumonia and possibly pulm edema that occurred after blood transfusion during her last chemo session. Since her hospitalization patient has been wheelchair bound and Oxygen dependent- prior to
event she was ambulatory with cane and did not require oxygen. Per sister patient has had multiple transfusions over the past few months due to MDS, with the longest period between transfusions 2 weeks. Patient has also had a significant loss of
appetite over the last month, losing 30 pounds in the process. ED eval was notable for hyponatremia 127 and anemia hgb 7.7. Vitals stable afebrile. Patient lethargic confused was able to report stomach pain with some tenderness, details sparse
due to lethargy. Patient herself unable to provide history. History provided by her sister EVA Amador.
PLAN:
#Hyponatremia significantly improved, mild at this time
Suspect due to low volume poor oral intake
received IVF NS bolus 500 cc in ED
Stop IV NS hydration 60 cc/h
Na since improved
#Anemia
#MDS
#Failure to thrive
#Poor appetite, abd pain
Monitor H&H
Hgb at 7.5 s/p 1u of PRBC so far
Oncology eval appreciated transfuse prn hgb<7
ST appreciated appropriate for regular diet with thin liquids (restricted to clear liquid for now d/t fecal impaction since resolved, advance diet as tolerated tomorrow 04/13 per GI)
PT/OT appreciated SNF rehab
Daily Ensure Vanilla supplement
If no improvement in overall status may need to consider hospice
#Complex left pleural effusion w adjacent compressive atelectasis as noted in CT
encourage Incentive spirometer use
Pulm eval appreciated
Venous Duplex neg for DVT
Status post thoracentesis with 80 cc dark pleural fluid removed. Fluid studies are pending in lab.
CXR showing interstitial edema
Await further pulmonary recs.
#fecal impaction and eccentric wall thickening cecum ascending colon as noted on CT.
#Constipation/fecal impaction resolved with bowel regimen and milk and molasses enema as per GI
GI eval appreciated
cont bowel regimen as per GI
Video swallow evaluation ordered. Continue with diet per speech recommendation. Having bowel movements.
GI since signed off, recommended to re-consult when pulmonary workup completed and pulm status optimized for colonoscopy
#Acute Metabolic Encephalopathy
#Lethargy
#Possible Hospital Associated Delirium
aspiration precautions
VBG wnl
Diet advanced
maintain aspiration precautions
Speech eval appreciated as above
stop seroquel
# Acute hypoxic respiratory insufficiency
#pulmonary hypertension
Echo with EF of 50 to 55%. Grade 2 diastolic dysfunction increased left ventricular filling pressure. Mild to moderate mitral regurgitation. Mild to moderate aortic regurgitation. Small pericardial effusion.
Chest x-ray with interstitial edema
Trial of IV Lasix
#Hypothermia
-recheck temp. Demario hugger if needed.
-BP stable.
#CAD CABG
#HTN
cont home ASA
cont home Metoprolol with holding parameters
#Hypothyroidism
cont home synthroid
TSH appreciated mild elevation 7.10 but T4 wnl
recommend repeat TFTs in 1 month follow up
dvt ppx Lovenox
DNR
discussed with patient's sister Marjorie VELASQUEZ at bedside in details.
Long-term prognosis poor.
Anticipated Discharge: > 48 hours
Subjective/Interval History
-
Date of Service: April 14, 2024
Patient was awake the whole night up until late morning
Seen after undergoing thoracentesis and video swallow evaluation now patient asleep but does wake up upon name calling
Objective Data
-
Labs:
Laboratory Results
04/14/24
05:38
WBC 4.7 L
Hgb 7.5 L
Hct 24.2 L
Plt Count 145
Sodium 138
Potassium 4.0
Chloride 100
Carbon Dioxide 31 H
BUN 9
Creatinine 0.5 L
Glucose 94
Calcium 7.5 L
Vital Signs:
Vital Signs
Temp Pulse Resp BP Pulse Ox
97.5 F 72 22 129/45 99
04/14/24 11:25 04/14/24 10:00 04/14/24 10:00 04/14/24 10:00 04/14/24 11:32
I&O
04/13/24 04/14/24 04/15/24
06:59 06:59 06:59
Intake Total 1420 / 1420 640 / 640 120 / 120
Balance 1420 / 1420 640 / 640 120 / 120
Data Reviewed
-
Total Time Spent with Patient (in minutes): 55
[2024-04-14] MEDS: LASIX 20 MG IV (15:47)
[2024-04-14] MEDS: LIPITOR PO (17:54)
[2024-04-14] MEDS: LOVENOX 40 MG SC (18:07)
[2024-04-14] MEDS: SENOKOT-S PO (19:52)
[2024-04-14] MEDS: ANUSOL HC 25 MG RECTAL (19:52)
[2024-04-14] MEDS: LOPRESSOR PO (19:52)
[2024-04-14] MEDS: MIRALAX PO (19:52)
[2024-04-15] VITALS (11 sets, daily range): BP systolic 123–148; BP diastolic 34–43; BMI 26.2
[2024-04-15] MEDS: SYNTHROID PO (03:15)
[2024-04-15 03:23] LABS: Glucose - Point of Care 150 mg/dl (70-99)
[2024-04-15 03:29] LABS: Hematocrit 25.2 % (37.0-47.0); Hemoglobin 7.6 g/dL (12.0-16.0); Mean Corp Hgb Conc. 30.2 g/dL (33.0-37.0); Mean Corpuscular Volume 96.2 fL (81.0-99.0); Mean Platelet Volume 10.8 fL (7.4-10.4); Platelet Count 142 10^3/uL (130-400); Red Blood Cell Count 2.62 10^6/uL (4.20-5.40); Red Cell Dist. Width 21.8 % (11.5-14.5); White Blood Cell Count 5.2 10^3/uL (4.8-10.8)
[2024-04-15 04:01] LABS: Blood Urea Nitrogen 10 mg/dl (7-17); Carbon Dioxide 33 mmol/L (22-30); Chloride 99 mmol/L (98-107); Estimated Creatinine Clearance 63 ml/min; Glucose 127 mg/dl (70-99); Magnesium 2.1 mg/dl (1.6-2.3); Potassium 4.5 mmol/L (3.5-5.1); Sodium 137 mmol/L (135-145); eGFR > 60.00
--- NOTE | 2024-04-15 04:11 | PTCARENOTE ---
Patient lethargic throughout the night. Opens eyes to tactile stimuli at times. Unable to take PO pills. Rectal temp below 95- mariposa hugger placed.
--- NOTE | 2024-04-15 05:54 | PTCARENOTE ---
Demario topete off- target temp reached.
--- NOTE | 2024-04-15 07:53 | W.PN.ONC2 ---
Today's Communication / Plan
-
Hospice appropriate. Support with products PRN. She is DNR. Px poor.
Impression
Impression
Very poor risk MDS, tolerating azacitidine poorly
Significant decline in performance status
Pneumonia/pleural effusion
Deconditioning with prolonged rehabilitative stay
Remote breast carcinoma
Plan
Plan
Mgmt of pleural effusion/pulm HTN per pulmonary, s/p left thora yesterday (small volume, dark/bloody)
Seems she might be best served by hospice as PS precludes further MDS therapy. She is DNR.
For now, transfuse hemoglobin less than 7g/dl platelet count less than 10K
Subjective/Objective
Chief Complaint
ACS Heme Onc
Subjective
Very weak. Poor PS.
Vital Signs:
Vital Signs
Temp Pulse Resp BP Pulse Ox
98.4 F 87 24 123/39 96
04/15/24 07:34 04/15/24 06:00 04/15/24 06:00 04/15/24 06:00 04/15/24 06:00
Lab Results:
Laboratory Data
WBC 5.2 10^3/uL (4.8-10.8) 04/15/24 03:08
Hgb 7.6 g/dL (12.0-16.0) L 04/15/24 03:08
Plt Count 142 10^3/uL (130-400) 04/15/24 03:08
eGFR > 60.00 04/15/24 03:08
[2024-04-15] MEDS: LOPRESSOR 12.5 MG PO ×2 (08:32→20:03)
[2024-04-15] MEDS: SENOKOT-S 1 TABLET PO ×2 (08:32→20:03)
[2024-04-15] MEDS: ASPIR LOW (ENTERIC COATED) PO (08:33)
[2024-04-15] MEDS: MIRALAX PO (08:36)
--- NOTE | 2024-04-15 09:33 | W.PN.PUL3 ---
Today's Communication / Plan
-
She remains lethargic and is continuing to decline
Unfortunately she has been spiking fevers and this may be related to her left-sided pleural effusion, however she also has rales bilaterally which is different on exam compared to 2 days ago, so aspiration is also very possible
Start Unasyn for now while GOC are being discussed as pt is hospice appropriate
s/p thoracentesis of left sided complex pleural effusion --> follow up Cx and cyto
Obtain prior medical records with any recent echocardiogram + procedures including thoracentesis that the patient reports that she had
PT/OT
Consider CTA chest to rule out acute PE especially if saturations do not improve s/p thoracentesis; likelihood of an acute PE is low given she is not tachycardic and RV was normal size and function on TTE
May ultimately need right heart catheterization as PH is severe on echo from 04/13
Before any invasive procedures are performed, it would be reasonable to have a goals of care discussion first
Assessment
-
78-year-old female with history of MDS requiring transfusion in the past, failure to thrive, 30 pound weight loss, history of coronary disease, valvular disease and distant history of breast cancer who presents with failure to thrive, fatigue,
anemia requiring transfusion. We are asked to comment on oxygen requirement and abnormal imaging
Impression:
Acute hypoxic respiratory insufficiency, saturation 87%
Requiring 2 L now on room air (Wells score is low)
Left pleural effusion per abdominal imaging 04/11/2024
Per patient, history of pleural effusion drained in the past
Details unclear, patient is a poor historian
Recent left-sided pneumonia treated at [facility]
Details unclear
MDS/pancytopenia
Requiring intermittent transfusion
On chemotherapy/azacitidine
Pulmonary hypertension with PASP: 63 mmHg from transthoracic echo on 04/13/2024 (unknown chronicity) - due to group II disease from valvular heart disease and diastolic heart failure
Eccentric wall thickening involving the cecum/ascending colon - this is concerning for malignancy
Conditions present prior to admission
Coronary disease, bypass surgery
Hypertension
Hypothyroidism
GERD
History of breast cancer 2011, radiation
30 pound weight loss
DNR
Plan/recommendations
Patient has remained lethargic for the last 48 hours and there is talks of hospice between multiple providers and the sister
This seems appropriate given the eccentric wall thickening seen on imaging with concern for colon cancer, and her bloody left-sided effusion which could be related to malignancy
The sister would like to arrange for meeting to discuss the patient's prognosis and discuss goals of care as she is open to hospice with transition to comfort care
Hospice appropriate is also the conclusion recommended by oncology
Patient has poor functional status and has been significantly declining in performance status, and any aggressive interventions would be poorly tolerated going forward
Left chest US done on 04/13/2024 showing a complex left-sided pleural effusion with debris measuring 10.9 x 5.2 x 5.7 cm --> thora performed on AM of 04/14, removed 80cc of exudative bloody fluid
Follow up fluid culture, fungus culture, AFB + cytopathology --> given the low glucose with elevated LDH, there is concern this could be a malignant effusion
-Given that this left pleural fluid is complex and bloody, a fluid hematocrit was sent which was 1.8 which is not consistent with a hemothorax. Pt has been spiking a fever, hence if she wishes to continue full medical treatment, then would
recommend chest tube drainage.
- I will check a CXR tomorrow to re-assess her L-sided pleural effusion
- She also has worsening rales on exam so aspiration is also a possibility for her spiking fevers
- Start Unasyn for now and check MRSA swab; broaden antibiotics further if she clinically deteriorates to cover MRSA + Pseudomonas
Pt did say that she had severe pain from her last thoracentesis, but with further discussion and explaining that lidocaine will be used and other pain medications are available she was amenable to obtaining a repeat thoracentesis
Keep SpO2 >90-94% with supplemental O2 and wean as tolerated
Will obtain records from [facility] specifically any prior thoracentesis which has been done
Patient, nor sister are aware of any recent trauma or falls
Patient is also high risk for thromboembolic disease
Transthoracic echo done on 04/13/2024 showed mild�moderate MR with mild�moderate AI, small pericardial effusion with grade 2 diastolic dysfunction with increased LV filling pressures with preserved LVEF at 50-55% with normal RV size and function and
pH with estimated PASP: 63 mmHg
Will try to obtain further records from [facility]. Dr. Guerra had previously requested
Given her abnormal CT abdomen/pelvis from 04/11/2024 with eccentric wall thickening involving the cecum/ascending colon, would recommend colonoscopy
- GI has been consulted with plans for eventual colonoscopy once optimized, pulmonary fleming. Transthoracic echo has multiple concerning findings mainly her severe pulmonary hypertension (unknown chronicity) with grade II diastolic dysfunction and
VHD
- Unfortunately the thoracentesis did not improve her respiratory status
- If she is still remaining hypoxic despite thoracentesis then would consider CTA chest to rule out acute PE, and she may ultimately require right heart catheterization +/- VQ scan --> she currently does not have signs of acute right sided heart
failure, and goals of care discussion first needs to be addressed as she would be better suited to be transition to hospice/comfort care
- Prior medical records need to be obtained to compare to any prior echo she has received as well as get more information of her previous thoracentesis
DVT prophylaxis: LMWH
DNR status noted. Sister describes slow decline over the last month
Dr. Guerra previously reviewed with family at bedside
Pulmonary service will continue to follow along
Total time spent today was 56 minutes for this encounter. Time includes reviewing laboratory test/imaging results, reviewing pertinent medical records, obtaining and reviewing medical history, performing an appropriate exam, ordering medications,
tests and procedures. Time also includes documentation of this encounter, coordinating patient care and communicating with other healthcare professionals. Total time does not include separately billed tests performed on this date of service.
Subjective Data
-
Date of Service:
Date of Service: April 15, 2024
Chief Complaint: Pulmonary Follow Up
Subjective:
Patient seen and evaluated today at bedside. Patient's sister at bedside. Patient is lethargic but is able to answer my questions appropriately but eyes are closed the entire time. BP 126/39, heart rate 77, and saturating 95% on 2 L/min nasal
cannula. She is in no acute distress.
Review of Systems
General: Other (Negative unless mentioned above)
Objective Data
Data Reviewed
Vital Signs / I&O / Oxygen:
Vital Signs
Temp Pulse Resp BP Pulse Ox
98.4 F 87 24 123/39 96
04/15/24 07:34 04/15/24 06:00 04/15/24 06:00 04/15/24 06:00 04/15/24 06:00
Intake and Output
04/14/24 04/15/24 04/16/24
06:59 06:59 06:59
Intake Total 640 / 640 120 / 120
Balance 640 / 640 120 / 120
SaO2 96
Nasal Cannula flow liters per 2
minute
Physical Exam
General: Respiratory Distress (negative), Comfortable, Chills (negative) and Sweats (negative)
HEENT: Normocephalic and Anicteric
Cardiovascular: S1-S2, Murmur (ROBSON heard at RUSB, grade III/) and Rub (negative)
Respiratory: Wheeze (n), Crackles (Bilateral), Rhonchi (Right base), Non-Labored Respirations and Other (Diminished breath sounds at the left base)
GI: Soft, Non Distended, Non Tender and Normal Bowel Sounds
Neurology: Tremors (negative) and Lethargic (Answering my questions appropriately but eyes remain closed the entire time)
Skin: Warm, Dry, Cyanosis (n), Jaundice (n) and Rash (n)
Labs/Micro/Reports
Lab Data
04/15/24 03:08
04/15/24 03:08
Microbiology
04/14/24 08:58 Pleural Fluid Body Fluid Culture - Preliminary
No Growth After 18-24 Hours
04/14/24 08:58 Pleural Fluid Gram Stain - Preliminary
04/14/24 08:59 Pleural Fluid Fungal Culture - Preliminary
Culture in progress.
Positive cultures are reported as soon as detected.
Final report to follow in four to five weeks.
--- NOTE | 2024-04-15 11:04 | PN.CDI ---
CDI
- -
CDI:
Physician Documentation Request
Admit Date: 04/10/24 19:47
Dear Doctor Moisés,
Patient admitted for hyponatremia.
Selected Entries
04/10/24
21:45
Pressure injury appearance [Present on admission Right Buttock] Dark red/maroon
Pressure injury appearance comment [Present on admission Right Buttock] scabbed
Pressure injury stage [Present on admission Right Buttock] Stage 2
Surrounding Skin - [Present on admission Right Buttock] Dry and intact
Physician documentation of the type and location of wounds is required for compliant documentation. Based on the above clinical findings and your assessment, please provide the following in your progress note:
1. Location of the ulcer/wound, including laterality.
2. Type (etiology) of ulcer/wound:
- Diabetic ulcer
- Arterial (ischemic) ulcer
- Traumatic wound
- Venous stasis ulcer
- Pressure (decubitus) ulcer
- Non-healing surgical wound
- Other
- Unable to determine
3. For a non-pressure ulcer, please indicate the depth/severity:
- Limited to the breakdown of skin
- With fat layer exposed
- With necrosis of muscle
- With necrosis of bone
- Other
- Unable to determine
4. If a pressure ulcer, please also include the stage* of the ulcer:
- Stage 1 - Skin intact, non-blanchable redness
- Stage 2 - Partial thickness loss of dermis, includes intact or open blister
- Stage 3 - Full thickness tissue not including bone, tendon or muscle
- Stage 4 - Full thickness tissue loss, including exposed bone, tendon or muscle
- Unstageable - Full thickness loss in which the base of the ulcer is covered by slough (yellow, arizmendi, dubois, green or brown) and/or eschar (arizmendi, brown or black) in the wound bed.
- Unable to determine
Use of terms such as suspected, likely, concern for, or probable (associated with a specific diagnosis that is being evaluated, monitored, or treated as if it exists) are acceptable and can be coded in the inpatient setting, when documented at the
time of discharge.
Thank you,
Pauline Abbott RN, BSN
CDI Specialist
Available via [email or web address]
Please use your independent medical judgment in providing your response.
*Source: National Pressure Ulcer Advisory Panel (NPUAP)
--- NOTE | 2024-04-15 11:14 | W.PN.HOSP.TC ---
Today's Communication/Plan
-
Await pulm recs
await fluid studies
OOB/PT
Wean o2
Assessment / Plan
Assessment / Plan
Physical Exam
General: Pallor+, cachectic+, no cyanosis or jaundice.
HEENT: Throat clear. PERRLA Normocephalic atraumatic
NECK: Supple. No JVD Carotid Bruits
RESPIRATORY: Left sided basilar crackles
CVS: S1, S2 normal. RRR. No murmur, rub or gallop.
ABDOMEN: Soft, non-tender. No distension. BS+/normal.
EXTREMITIES: No peripheral cyanosis, lower ext swelling edema +1 b/l.
SENIOR EXAMINER: Awake Alert Conversant Coherent
IMPRESSION:
78F MDS CAD CABG mo artic insuff HTN Hypothyroidism GERD Breast Ca s/p rad here for evaluation weakness failure to thrive. Referred to ED by her Oncologist during a follow up visit. Prior to visit patient has been at [facility] rehab for a few
weeks following Hospitalization at [place] due to pneumonia and possibly pulm edema that occurred after blood transfusion during her last chemo session. Since her hospitalization patient has been wheelchair bound and Oxygen dependent- prior to
event she was ambulatory with cane and did not require oxygen. Per sister patient has had multiple transfusions over the past few months due to MDS, with the longest period between transfusions 2 weeks. Patient has also had a significant loss of
appetite over the last month, losing 30 pounds in the process. ED eval was notable for hyponatremia 127 and anemia hgb 7.7. Vitals stable afebrile. Patient lethargic confused was able to report stomach pain with some tenderness, details sparse
due to lethargy. Patient herself unable to provide history. History provided by her sister EVA Amador.
PLAN:
#Hyponatremia significantly improved, mild at this time
Suspect due to low volume poor oral intake
received IVF NS bolus 500 cc in ED
Stop IV NS hydration 60 cc/h
Na since improved
#Anemia
#MDS
#Failure to thrive
#Poor appetite, abd pain
Monitor H&H
Hgb at 7.5 s/p 1u of PRBC so far
Oncology eval appreciated transfuse prn hgb<7
ST appreciated appropriate for regular diet with thin liquids (restricted to clear liquid for now d/t fecal impaction since resolved, advance diet as tolerated tomorrow 04/13 per GI)
PT/OT appreciated SNF rehab
Daily Ensure Vanilla supplement
If no improvement in overall status may need to consider hospice
#Complex left pleural effusion w adjacent compressive atelectasis as noted in CT
encourage Incentive spirometer use
Pulm eval appreciated
Venous Duplex neg for DVT
Status post thoracentesis with 80 cc dark pleural fluid removed. Exudative in nature. Fluid studies (fungal studies in lab). Gram stain bacterial prelim negative so far.
CXR showing interstitial edema
Await further pulmonary recs.
#fecal impaction and eccentric wall thickening cecum ascending colon as noted on CT.
#Constipation/fecal impaction resolved with bowel regimen and milk and molasses enema as per GI
GI eval appreciated
cont bowel regimen as per GI
Video swallow evaluation ordered. Continue with diet per speech recommendation. Having bowel movements.
GI since signed off, recommended to re-consult when pulmonary workup completed and pulm status optimized for colonoscopy
#Acute Metabolic Encephalopathy
#Lethargy
#Possible Hospital Associated Delirium
aspiration precautions
VBG wnl
Diet advanced
maintain aspiration precautions
Speech eval appreciated as above
stop seroquel
More awake now.
# Acute hypoxic respiratory insufficiency
#pulmonary hypertension
Echo with EF of 50 to 55%. Grade 2 diastolic dysfunction increased left ventricular filling pressure. Mild to moderate mitral regurgitation. Mild to moderate aortic regurgitation. Small pericardial effusion.
Chest x-ray with interstitial edema
hold further IV lasix.
#Hypothermia
-recheck temp. Demario hugger if needed.
-BP stable. Check TSH/Cortisol
#CAD CABG
#HTN
cont home ASA
cont home Metoprolol with holding parameters
#Hypothyroidism
cont home synthroid
TSH appreciated mild elevation 7.10 but T4 wnl
recommend repeat TFTs in 1 month follow up
dvt ppx Lovenox
DNR
discussed with patient's sister Marjorie VELASQUEZ at bedside in details.
Long-term prognosis poor.
Anticipated Discharge: > 48 hours
Subjective/Interval History
-
Date of Service: April 15, 2024
more awake this morning
hypothermic improved
hungry
denies sob
Objective Data
-
Labs:
Laboratory Results
04/15/24
03:08
WBC 5.2
Hgb 7.6 L
Hct 25.2 L
Plt Count 142
Sodium 137
Potassium 4.5
Chloride 99
Carbon Dioxide 33 H
BUN 10
Creatinine 0.5 L
Glucose 127 H
Calcium 8.0 L
Vital Signs:
Vital Signs
Temp Pulse Resp BP Pulse Ox
98.4 F 87 24 123/39 96
04/15/24 07:34 04/15/24 06:00 04/15/24 06:00 04/15/24 06:00 04/15/24 06:00
I&O
04/14/24 04/15/24 04/16/24
06:59 06:59 06:59
Intake Total 640 / 640 120 / 120
Balance 640 / 640 120 / 120
Data Reviewed
-
Total Time Spent with Patient (in minutes): 52
--- NOTE | 2024-04-15 12:24 | CM ---
Addendum entered by Kim Ivan RN 04/15/24 16:36:
Message from Leslie, [facility]; they are able to accept for short term rehab and possibly LTC. They will need an application from the sister for LTC.
Spoke with patient's sister Marjorie; informed her [facility] can accept for STR and possibly LTC. Provided her with [facility]'s cell. She may take a tour tomorrow and will decide.
Plan follow up with patient's sister re; SNF preference.
Original Note:
Patient with Hx Myelodysplastic syndrome on chemo with Dx Anemia, Failure to thrive, Complex left pleural effusion, KATHY possible delirium, s/p thoracentesis yesterday, VSE yesterday- cleared for regular solids/thin liquids. O2 2L. PT/OT recommend
skilled rehab. Per nurse assessment; confused, drowsy, lethargic.
Spoke with patient's sister Marjorie; informed her that the 8 SNF referrals were reviewed and the only accepting facility is [facility]. Sister is ok with the patient returning to their facility and is probably going to do a private pay bed hold so
patient is assured to return to the same room. Marjorie states that the patient has enough funds to private pay for LTC for about a year before needing to go on MA.
Spoke with Bam, [facility]; provided clinical update. They are able to accept her back when she is medically ready, for STR followed by LTC. The ph for report is [phone], fax [phone].
Plan [facility] when medically ready.
--- NOTE | 2024-04-15 16:17 | PTCARENOTE ---
Addendum entered by Lula uLna RN 04/15/24 18:09:
T 99.8 R
Original Note:
T100.[address] Curiel notified via tiger text. Currently 100.3.
[2024-04-15] MEDS: LIPITOR PO (17:40)
[2024-04-15] MEDS: LOVENOX 40 MG SC (17:40)
[2024-04-15] MEDS: MIRALAX 17 GRAMS PO (20:03)
[2024-04-15] MEDS: ANUSOL HC 25 MG RECTAL (20:03)
--- NOTE | 2024-04-15 21:56 | PTCARENOTE ---
Caring for patient overnight. aaox1, awake and alert in beginning of shift, can engage in small talk but remains forgetful & confused. Could tell me her birthday but unable to state where she is. Able to take pills whole with applesauce, chewing her
pills, encouragement to swallow pills. Drinking thins. No coughing with oral intake. Crackles bilaterally, initially on 3LNC 97%, tried weaning to 2LNC but desated to 85%. Staring unasyn tonight. Will monitor temps. Q2T. BA on. Call peng in reach.
Will continue to monitor.
[2024-04-15] MEDS: UNASYN IV (22:18)
[2024-04-16] VITALS (11 sets, daily range): BP systolic 121–146; BP diastolic 33–54; BMI 26.2
[2024-04-16 03:21] LABS: Venous Blood Gas B.E. 10.9 mmol/L (-4 to +4); Venous Blood Gas HCO3 38.1 mmol/L (22-27); Venous Blood Gas O2 Sat % 99.8 %; Venous Blood Gas pCO2 69 mmHg (35-48); Venous Blood Gas pH 7.35 (7.32-7.43); Venous Blood Gas pO2 184 mmHg (30-50)
[2024-04-16 03:27] LABS: Hemoglobin 7.7 g/dL (12.0-16.0); Mean Corp Hgb Conc. 29.6 g/dL (33.0-37.0); Mean Corpuscular Hgb 29.6 pg (27.0-31.0); Mean Platelet Volume 10.7 fL (7.4-10.4); Platelet Count 145 10^3/uL (130-400); Red Cell Dist. Width 20.8 % (11.5-14.5); White Blood Cell Count 3.9 10^3/uL (4.8-10.8)
[2024-04-16 03:39] LABS: Blood Urea Nitrogen 13 mg/dl (7-17); Carbon Dioxide 39 mmol/L (22-30); Chloride 96 mmol/L (98-107); Estimated Creatinine Clearance 63 ml/min; Glucose 139 mg/dl (70-99); Magnesium 1.9 mg/dl (1.6-2.3); Potassium 4.2 mmol/L (3.5-5.1); Sodium 141 mmol/L (135-145); eGFR > 60.00
[2024-04-16 04:02] LABS: Cortisol, Random 41.4 ug/dl; TSH Reflex To Free T4 2.18 uIU/ml (0.47-4.68)
[2024-04-16] MEDS: UNASYN IV ×2 (04:18→09:01)
[2024-04-16] MEDS: SYNTHROID 100 MCG PO (05:45)
--- NOTE | 2024-04-16 06:12 | PTCARENOTE ---
Pt removing o2 repeatedly last night. pt would desat to 70's when no oxygen was in. contacted [facility] for bilateral mitts.
[2024-04-16] MEDS: LASIX 40 MG IV ×2 (09:01→13:57)
[2024-04-16] MEDS: ASPIR LOW (ENTERIC COATED) 81 MG PO (09:01)
[2024-04-16] MEDS: SENOKOT-S PO ×3 (09:01→20:44)
[2024-04-16] MEDS: MIRALAX PO ×3 (09:02→20:44)
[2024-04-16] MEDS: LOPRESSOR 12.5 MG PO (09:02)
--- NOTE | 2024-04-16 09:51 | W.PN.PUL3 ---
Addendum entered and electronically signed by Khanh Keaen MD 04/16/24 19:58:
After family had discussion with hospice team, patient is now being transitioned to hospice care/comfort. Pulmonary service will now sign off. Thank you for allowing us to be involved in the care of this patient. Please reconsult if there are any
additional questions/concerns.
Original Note:
Today's Communication / Plan
-
She remains lethargic and is continuing to decline
Unfortunately she has been spiking fevers and this may be related to her left-sided pleural effusion, however she also has rales bilaterally which is different on exam compared to 3 days ago, so aspiration is also very possible
Continue Unasyn for now while GOC are being discussed as pt is hospice appropriate --> sisters are amenable to TRX to hospice/comfort
s/p thoracentesis of left sided complex pleural effusion --> follow up Cx (NGTD) and cyto (negative for malignant cells
Obtain prior medical records with any recent echocardiogram + procedures including thoracentesis that the patient reports that she had
PT/OT unable to perform now given patient's lethargic state
Consider CTA chest to rule out acute PE especially if saturations do not improve s/p thoracentesis; likelihood of an acute PE is low given she is not tachycardic and RV was normal size and function on TTE
May ultimately need right heart catheterization as PH is severe on echo from 04/13
Patient likely being transitioned to hospice/comfort care to hold off on any additional procedures or imaging at this time
Dose of lasix to be given now given abnormal CXR this AM
Pulmonary service will continue to follow along, however if patient transition to hospice then we will sign off at that time.
Assessment
-
78-year-old female with history of MDS requiring transfusion in the past, failure to thrive, 30 pound weight loss, history of coronary disease, valvular disease and distant history of breast cancer who presents with failure to thrive, fatigue,
anemia requiring transfusion. We are asked to comment on oxygen requirement and abnormal imaging
Impression:
Acute hypoxic respiratory insufficiency, saturation 87%
Requiring 2 L (Wells score is low)
Left loculated pleural effusion per abdominal imaging 04/11/2024
Per patient, history of pleural effusion drained in the past
Details unclear, patient is a poor historian
Recent left-sided pneumonia treated at [facility]
Details unclear
MDS/pancytopenia
Requiring intermittent transfusion
On chemotherapy/azacitidine
Pulmonary hypertension with PASP: 63 mmHg from transthoracic echo on 04/13/2024 (unknown chronicity) - due to group II disease from valvular heart disease and diastolic heart failure
Eccentric wall thickening involving the cecum/ascending colon - this is concerning for malignancy
Conditions present prior to admission
Coronary disease, bypass surgery
Hypertension
Hypothyroidism
GERD
History of breast cancer 2011, radiation
30 pound weight loss
DNR
Plan/recommendations
Patient has remained lethargic for the last 48 hours and there is talks of hospice between multiple providers and the sister
This seems appropriate given the eccentric wall thickening seen on imaging with concern for colon cancer, and her bloody left-sided effusion which could be related to malignancy
The sister would like to arrange for meeting to discuss the patient's prognosis and discuss goals of care as she is open to hospice with transition to comfort care --> I spoke with the 2 sisters this morning and they are amenable for hospice care
Hospice appropriate is also the conclusion recommended by oncology
Patient has poor functional status and has been significantly declining in performance status, and any aggressive interventions would be poorly tolerated going forward
Left chest US done on 04/13/2024 showing a complex left-sided pleural effusion with debris measuring 10.9 x 5.2 x 5.7 cm --> thora performed on AM of 04/14, removed 80cc of exudative bloody fluid
Follow up fluid culture, fungus culture, AFB (NGTD) + cytopathology (negative for malignant cells)--> given the low glucose with elevated LDH, there is concern this could be a malignant effusion despite a negative cytopathology
- Given that this left pleural fluid is complex and bloody, a fluid hematocrit was sent which was 1.8 which is not consistent with a hemothorax. Pt has been spiking a fever, hence if she wishes to continue full medical treatment, then would
recommend chest tube drainage, although family is leaning towards hospice so hold off on chest tube for now
- CXR this morning (04/16/2024) shows worsening bilateral opacification with what appears to be stable left lower lobe effusion --> will give a dose of Lasix now
- She also has worsening rales per exam on 04/15, so aspiration is also a possibility for her spiking fevers
- On 04/15, I started Unasyn for now; broaden antibiotics further if she clinically deteriorates to cover MRSA + Pseudomonas; she is likely heading towards hospice so antibiotics will be stopped in that case
Pt did say that she had severe pain from her last thoracentesis, but with further discussion and explaining that lidocaine will be used and other pain medications are available she was amenable to obtaining a repeat thoracentesis
Keep SpO2 >90-94% with supplemental O2 and wean as tolerated
Awaiting records from [facility] specifically any prior thoracentesis which has been done
Patient, nor sister are aware of any recent trauma or falls
Patient is also high risk for thromboembolic disease
Transthoracic echo done on 04/13/2024 showed mild�moderate MR with mild�moderate AI, small pericardial effusion with grade 2 diastolic dysfunction with increased LV filling pressures with preserved LVEF at 50-55% with normal RV size and function and
pH with estimated PASP: 63 mmHg
Will try to obtain further records from [facility]. Dr. Guerra had previously requested
Given her abnormal CT abdomen/pelvis from 04/11/2024 with eccentric wall thickening involving the cecum/ascending colon, would recommend colonoscopy
- GI has been consulted with plans for eventual colonoscopy once optimized, pulmonary fleming. Transthoracic echo has multiple concerning findings mainly her severe pulmonary hypertension (unknown chronicity) with grade II diastolic dysfunction and
VHD
- Unfortunately the thoracentesis did not improve her respiratory status
- If she is still remaining hypoxic despite thoracentesis then would consider CTA chest to rule out acute PE, and she may ultimately require right heart catheterization +/- VQ scan --> she currently does not have signs of acute right sided heart
failure, and goals of care discussion held and family leaning towards hospice --> hold off on any procedures or additional imaging at this juncture
- Prior medical records need to be obtained to compare to any prior echo she has received as well as get more information of her previous thoracentesis
DVT prophylaxis: LMWH
DNR status noted. Sister describes slow decline over the last month
Dr. Guerra previously reviewed with family at bedside
Pulmonary service will continue to follow along, however if patient transition to hospice then we will sign off at that time.
Total time spent today was 53 minutes for this encounter. Time includes reviewing laboratory test/imaging results, reviewing pertinent medical records, obtaining and reviewing medical history, performing an appropriate exam, ordering medications,
tests and procedures. Time also includes documentation of this encounter, coordinating patient care and communicating with other healthcare professionals. Total time does not include separately billed tests performed on this date of service.
Subjective Data
-
Date of Service:
Date of Service: April 16, 2024
Chief Complaint: Pulmonary Follow Up
Subjective:
Patient seen and evaluated this morning. She is still very sleepy although easily arousable by voice but then falls back asleep. Sisters at bedside and they are interested in speaking with hospice. Patient appears comfortable. She is saturating
96% on 2 L/min. Hypothermic this morning.
Review of Systems
General: Other (Unable to obtain given patient's acute clinical status)
Objective Data
Data Reviewed
Vital Signs / I&O / Oxygen:
Vital Signs
Temp Pulse Resp BP Pulse Ox
97 F 70 27 135/39 96
04/16/24 08:00 04/16/24 10:00 04/16/24 10:00 04/16/24 10:00 04/16/24 10:00
Intake and Output
11/06/24 11/07/24 11/08/24
06:59 06:59 06:59
Intake Total 120 / 120 260 / 260
Output Total 150 / 150
Balance 120 / 120 110 / 110
SaO2 96
Nasal Cannula flow liters per 2
minute
Physical Exam
General: Respiratory Distress (negative), Comfortable, Chills (negative) and Sweats (negative)
HEENT: Normocephalic and Anicteric
Cardiovascular: S1-S2, Murmur (ROBSON heard at RUSB, grade III/) and Rub (negative)
Respiratory: Wheeze (n), Crackles (Bilateral), Rhonchi (Right base), Non-Labored Respirations and Other (Diminished breath sounds at the left base)
GI: Soft, Non Distended, Non Tender and Normal Bowel Sounds
Neurology: Tremors (negative) and Lethargic (Awakens to verbal/tactile stimuli but then falls back asleep )
Skin: Warm, Dry, Cyanosis (n), Jaundice (n) and Rash (n)
Labs/Micro/Reports
Lab Data
04/16/24 02:59
04/16/24 02:59
Microbiology
04/14/24 08:58 Pleural Fluid Body Fluid Culture - Preliminary
No Growth After 48 Hours
04/14/24 08:58 Pleural Fluid Gram Stain - Preliminary
04/14/24 08:59 Pleural Fluid Fungal Culture - Preliminary
Culture in progress.
Positive cultures are reported as soon as detected.
Final report to follow in four to five weeks.
--- NOTE | 2024-04-16 10:21 | W.PN.ONC2 ---
Today's Communication / Plan
-
daily CBC, Transfuse prn
Sisters meeting with hospice today
Impression
Impression
Very poor risk MDS, tolerating azacitidine poorly
Significant decline in performance status
Pneumonia/pleural effusion
Deconditioning with prolonged rehabilitative stay
Remote breast carcinoma
Plan
Plan
Mgmt of pleural effusion/pulm HTN per pulmonary, s/p left thora yesterday (small volume, dark/bloody)
Seems she might be best served by hospice as PS precludes further MDS therapy. She is DNR.
For now, transfuse hemoglobin less than 7g/dl platelet count less than 10K
Subjective/Objective
Subjective
lethargic, unable to participate in conversation
Sister at bedside meeting with hospice today
Vital Signs:
Vital Signs
Temp Pulse Resp BP Pulse Ox
97 F 70 27 135/39 96
04/16/24 08:00 04/16/24 10:00 04/16/24 10:00 04/16/24 10:00 04/16/24 10:00
Lab Results:
Laboratory Data
WBC 3.9 10^3/uL (4.8-10.8) L 04/16/24 02:59
Hgb 7.7 g/dL (12.0-16.0) L 04/16/24 02:59
Plt Count 145 10^3/uL (130-400) 04/16/24 02:59
eGFR > 60.00 04/16/24 02:59
Physical Exam
General: lethargic, appears comfortable
HEENT: Negative Jaundice
Cardiology: Normal Sinus Rhythm, S1 and S2
Pulmonary: rales
GI: Soft and Normal Bowel Sounds
Extremities: no edema
--- NOTE | 2024-04-16 10:42 | CM ---
Addendum entered by Jammie Ortega 04/16/24 14:55:
Per assurance senior manager insurance, patient will be moved to [address] [place] [address] and be placed on comfort care.
Referral sent to [facility] as requested
Addendum entered by Jammie Ortega 04/16/24 11:45:
Case Management Consult completed; Hospice Consult referral sent via [facility]
Texted DH assurance senior manager insurance on-call to let her know that both sisters will be available at the bedside this afternoon @ 2PM
Original Note:
Met with patient's sister, Marjorie, at the bedside; she reported that Oncologist spoke to her about patient starting Hospice. Attending notified and will meet with sister today; Hospice Consult requested to assist with disposition planning
--- NOTE | 2024-04-16 11:01 | PTCARENOTE ---
Patient very lethargic. Opens eyes to voice. Able to swallow some applesauce with a lot of coaching. Sister at bedside. VSS. 2L NC. B/L mitts for pulling at lines. Will closely monitor.
[2024-04-16 11:12] LABS: NT-proBNP 7050 pg/ml
--- NOTE | 2024-04-16 12:47 | W.PN.HOSP.TC ---
Addendum entered and electronically signed by Dayron Curiel MD 04/17/24 16:06:
Chronic hypoxic respiratory failure
Addendum entered and electronically signed by Dayron Curiel MD 04/16/24 15:52:
Stage 2 Right buttock PI-POA
Addendum entered and electronically signed by Dayron Curiel MD 04/16/24 14:43:
Patient was evaluated by hospice and 2 sisters agreed to transition to comfort measures for now. Transfer orders and comfort measures order placed. Discussed with hospice team.
Original Note:
Today's Communication/Plan
-
IV lasix
wean o2
Hospice c/s placed-CM aware
prognosis poor
Assessment / Plan
Assessment / Plan
Physical Exam
General: Pallor+, cachectic+, no cyanosis or jaundice.
HEENT: Throat clear. PERRLA Normocephalic atraumatic
NECK: Supple. No JVD Carotid Bruits
RESPIRATORY: Left sided basilar crackles
CVS: S1, S2 normal. RRR. No murmur, rub or gallop.
ABDOMEN: Soft, non-tender. No distension. BS+/normal.
EXTREMITIES: No peripheral cyanosis, lower ext swelling edema +1 b/l.
DUMP MOTOR OPERATOR: Awake Alert Conversant Coherent
IMPRESSION:
78F MDS CAD CABG mo aortic insufficiency, HTN Hypothyroidism GERD Breast Ca s/p rad here for evaluation weakness failure to thrive. Referred to ED by her Oncologist during a follow up visit. Prior to visit patient has been at [facility] rehab
for a few weeks following Hospitalization at [facility] due to pneumonia and possibly pulm edema that occurred after blood transfusion during her last chemo session. Since her hospitalization patient has been wheelchair bound and Oxygen dependent-
prior to event she was ambulatory with cane and did not require oxygen. Per sister patient has had multiple transfusions over the past few months due to MDS, with the longest period between transfusions 2 weeks. Patient has also had a significant
loss of appetite over the last month, losing 30 pounds in the process. ED eval was notable for hyponatremia 127 and anemia hgb 7.7. Vitals stable afebrile. Patient lethargic confused was able to report stomach pain with some tenderness, details
sparse due to lethargy. Patient herself unable to provide history. History provided by her sister EVA Amador.
PLAN:
#Acute hypoxic respiratory insufficiency likely 2/2 severe pulmonary hypertension and possible suspected aspiration pneumonia/pneumonitis
#Pulmonary hypertension
Echo with EF of 50 to 55%. Grade 2 diastolic dysfunction increased left ventricular filling pressure. Mild to moderate mitral regurgitation. Mild to moderate aortic regurgitation. Small pericardial effusion.
Chest x-ray this morning with interstitial edema.
Probnp elevated at 7050
Will start IV lasix 40mg daily-may need to escalate dose if not with enough UOP. However, need to be mindful as with decrease po intake
Started on IV Unasyn
#Complex left pleural effusion w adjacent compressive atelectasis as noted in CT
encourage Incentive spirometer use
Pulm eval appreciated
Venous Duplex neg for DVT
Status post thoracentesis with 80 cc dark pleural fluid removed. Exudative in nature. Fluid studies (fungal studies in lab). Gram stain bacterial prelim negative so far.
CXR showing interstitial edema
Per pulmonary concern for infection and if patient not transitioning to hospice and will require chest tube placement
#Hyponatremia significantly improved, mild at this time
Suspect due to low volume poor oral intake
received IVF NS bolus 500 cc in ED
Stop IV NS hydration 60 cc/h
Na since improved
#Anemia
#MDS
#Failure to thrive
#Poor appetite, abd pain
Monitor H&H
Hgb at 7.5 s/p 1u of PRBC so far
Oncology eval appreciated transfuse prn hgb<7
ST appreciated appropriate for regular diet with thin liquids (restricted to clear liquid for now d/t fecal impaction since resolved, advance diet as tolerated tomorrow 11/04 per GI)
Daily Ensure Vanilla supplement
If no improvement in overall status may need to consider hospice
Oncology following and recommending hospice
#fecal impaction and eccentric wall thickening cecum ascending colon as noted on CT.
#Constipation/fecal impaction resolved with bowel regimen and milk and molasses enema as per GI
GI eval appreciated
cont bowel regimen as per GI
Video swallow evaluation ordered. Continue with diet per speech recommendation. Having bowel movements.
GI since signed off, recommended to re-consult when pulmonary workup completed and pulm status optimized for colonoscopy
#Acute Metabolic Encephalopathy
#Lethargy
#Possible Hospital Associated Delirium
aspiration precautions
VBG wnl
Diet advanced
maintain aspiration precautions
Speech eval appreciated as above
stop seroquel
#Hypothermia
-recheck temp. Demario del angeler if needed.
-BP stable. TSH/Cortisol wnl.
#CAD CABG
#HTN
cont home ASA
cont home Metoprolol with holding parameters
#Hypothyroidism
cont home synthroid
TSH appreciated mild elevation 7.10 but T4 wnl
recommend repeat TFTs in 1 month follow up
dvt ppx Lovenox
DNR
discussed with patient's sister Marjorie VELASQUEZ at bedside in details on daily basis. Recommended hopsice. Marjorie want's to have meeting Hospice team with her sibling. Hospice c/s plaed.
Long-term prognosis poor.
d/w with pulmonary
Anticipated Discharge: > 48 hours
Subjective/Interval History
-
Date of Service: April 16, 2024
remains lethargic and poor appetite
on oxygen
opens eyes to commands but falls asleep
Objective Data
-
Labs:
Laboratory Results
04/16/24
02:59
WBC 3.9 L
Hgb 7.7 L
Hct 26.0 L
Plt Count 145
Sodium 141
Potassium 4.2
Chloride 96 L
Carbon Dioxide 39 H
BUN 13
Creatinine 0.5 L
Glucose 139 H
Calcium 8.0 L
Vital Signs:
Vital Signs
Temp Pulse Resp BP Pulse Ox
98.3 F 70 27 135/39 96
04/16/24 11:00 04/16/24 10:00 04/16/24 10:00 04/16/24 10:00 04/16/24 10:00
I&O
04/15/24 04/16/24 04/17/24
06:59 06:59 06:59
Intake Total 120 / 120 260 / 260
Output Total 150 / 150
Balance 120 / 120 110 / 110
Data Reviewed
-
Total Time Spent with Patient (in minutes): 55
--- NOTE | 2024-04-16 14:41 | HOSPNOTE ---
Spoke with sisters and discussed hospice and the philosophy. The patient will be moved to [facility] and be placed on comfort care. The sisters understand that medications will be given for symptoms. CM informed to please place referral to [place]
with hospice. Attending aware and will place orders for comfort. I will re assess patient in the am, there is a possibility patient will remain here. Family aware and in agreement.
--- NOTE | 2024-04-16 15:45 | PN.CDI ---
CDI
- -
CDI:
Physician Documentation Request
Admit Date: 04/10/24 19:47
Dear Doctor Moisés,
Patient admitted with hyponatremia.
04/11 Hospitalist PN: 'Since her hospitalization patient has been wheelchair bound and Oxygen dependent'
Selected Entries
04/10/24
21:45 04/12/24
11:00 04/13/24
08:00
Nasal Cannula flow liters per minute 2 2 2
04/14/24
08:50 04/15/24
21:20 04/16/24
09:23
Nasal Cannula flow liters per minute 2 3 2
Clarify which of the following accurately represents the patient's respiratory status:
Chronic hypoxic respiratory failure
Hypoxia
Other
Additional information for Respiratory Failure:
Recognized criteria for Respiratory Failure (Source: [facility] Apr 2013)
ABGs: (1 or more) Symptoms Please indicate type if known
1. p)2 <60 or RA SPO2 <91% on RA 1. Tachypnea, SOB, dyspnea Hypoxic
2. pCO2 50 and pH <7.35 2. Use of accessory muscles Hypercapnic
3. pO2 decrease of pCO2 increase by 3. Pallor or cyanosis Hypoxic and Hypercapnic
10 mmHg from baseline if known 4. Anxiety or restlessness Unable to determine
5. Unable to speak in full sentences
Supplemental O2 of > 40% (5LPM) Intubation is not required
Use of terms such as suspected, likely, concern for, or probable (associated with a specific diagnosis that is being evaluated, monitored, or treated as if it exists) are acceptable and can be coded in the inpatient setting, when documented at the
time of discharge.
Thank you,
Pauline Abbott RN, BSN
CDI Specialist
Available via [facility] text
Please use your independent medical judgment in providing your response.
[2024-04-16] MEDS: MORPHINE SULFATE 2 MG IV ×2 (17:21→22:07)
--- NOTE | 2024-04-17 02:48 | W.PN.DEATH ---
Pronouncement of
-
Called to see patient to pronounce.
No spontaneous heart tones or respirations noted.
Patient not responsive to verbal stimuli.
Patient is pronounced .
Time of : 01:15
Date of : 04/17/24
Cause of : acute hypoxic respiratory failure, pulmonary HTN, aspiration PNA, pancytopenia from MDS
Family Notified: Yes (sister present in room..will be calling other sister to come in.)
--- NOTE | 2024-04-17 08:01 | W.DCSUMMARY ---
Discharge Summary
Discharge Data
Date of Admission: 04/10/24
Date of Discharge: 04/17/24
-
Pending Results: No
Hospital Course
78F MDS CAD CABG aortic insufficiency, HTN Hypothyroidism, myelodysplastic syndrome, GERD Breast Ca s/p rad here for evaluation weakness failure to thrive. Referred to ED by her Oncologist during a follow up visit. Prior to visit patient has been
[facility] following Hospitalization at [facility] due to pneumonia and possibly pulm edema that occurred after blood transfusion during her last chemo session. Since her hospitalization patient has been wheelchair bound
and Oxygen dependent- prior to event she was ambulatory with cane and did not require oxygen. Per sister patient has had multiple transfusions over the past few months due to MDS, with the longest period between transfusions 2 weeks. Patient has
also had a significant loss of appetite over the last month, losing 30 pounds in the process. Found to have Acute hypoxic respiratory insufficiency likely 2/2 severe pulmonary hypertension and possible suspected aspiration pneumonia/pneumonitis.
Echo with EF of 50 to 55%. Grade 2 diastolic dysfunction increased left ventricular filling pressure. Mild to moderate mitral regurgitation. Mild to moderate aortic regurgitation. Small pericardial effusion. Probnp elevated at 7050. Found to
have Complex left pleural effusion w adjacent compressive atelectasis as noted in CT. Status post thoracentesis with 80 cc dark pleural fluid removed. Exudative in nature. Fluid studies (fungal studies in lab). Gram stain bacterial prelim
negative so far. Fecal impaction and eccentric wall thickening cecum ascending colon as noted on CT. Constipation/fecal impaction resolved with bowel regimen and milk and molasses enema as per GI .GI since signed off, recommended to re-consult
when pulmonary workup completed and pulm status optimized for colonoscopy. Patient was also eval by oncology. Patient was also evaluated by pulmonary. Found to have a aspiration pneumonia and was started on IV antibiotics. Patient mentation
continued to decline even after taking it off Seroquel. Patient with poor appetite and failure to thrive. Oncology recommended hospice. Hospice was consulted after discussion with patient sister. Both sisters agreed for comfort measures.
Patient was transition to 2 N. on comfort measures. Patient received morphine as per the comfort measures protocol. Patient on 04/17/2024 at 1:15 AM.
Discharge Plan
-
Patient Disposition:
Date/Time
Date/Time: 04/17/24 01:15
Discharge Date and Time
Discharge Date/Time: 04/17/24 01:15
Print Language: HUNGARIAN
== END 2024-04-17 01:15 | disposition expired | DRG 186 ==
LOC: 2 NORTH 19:47
PROVIDERS: Internal Medicine; Internal Medicine Critical Care Medicine; Nurse Practitioner; Radiology Vascular & Interventional Radiology; ADMITTING PHYSICIAN Hospitalist; ATTENDING PHYSICIAN Hospitalist; CONSULT PHYSICIAN Internal Medicine Critical Care Medicine; CONSULT PHYSICIAN Internal Medicine Hematology & Oncology; CONSULT PHYSICIAN Student in an Organized Health Care Education/Training Program; EMERGENCY PHYSICIAN Student in an Organized Health Care Education/Training Program; FAMILY PHYSICIAN Student in an Organized Health Care Education/Training Program
PROC: 30233N1 Transfusion of Nonautologous Red Blood Cells into Peripheral Vein, Percutaneous Approach (ICD-10-PCS; 2024-04-11)
PROC: 0W9B3ZZ Drainage of Left Pleural Cavity, Percutaneous Approach (ICD-10-PCS; 2024-04-14)
DX: J90 Pleural effusion, not elsewhere classified (principal); G93.41 Metabolic encephalopathy; J69.0 Pneumonitis due to inhalation of food and vomit; J18.9 Pneumonia, unspecified organism; E87.1 Hypo-osmolality and hyponatremia; D61.818 Other pancytopenia; J98.11 Atelectasis; F05 Delirium due to known physiological condition; I31.39 Other pericardial effusion (noninflammatory); J96.11 Chronic respiratory failure with hypoxia; E86.0 Dehydration; I10 Essential (primary) hypertension; D46.9 Myelodysplastic syndrome, unspecified; Z51.5 Encounter for palliative care; I25.10 Atherosclerotic heart disease of native coronary artery without angina pectoris; E78.5 Hyperlipidemia, unspecified; E89.0 Postprocedural hypothyroidism; R63.4 Abnormal weight loss; L89.312 Pressure ulcer of right buttock, stage 2; I08.0 Rheumatic disorders of both mitral and aortic valves; R68.0 Hypothermia, not associated with low environmental temperature; K56.41 Fecal impaction; N83.202 Unspecified ovarian cyst, left side; R62.7 Adult failure to thrive; I27.20 Pulmonary hypertension, unspecified; K21.9 Gastro-esophageal reflux disease without esophagitis; Z66 Do not resuscitate; Z85.3 Personal history of malignant neoplasm of breast; Z92.3 Personal history of irradiation; Z99.3 Dependence on wheelchair; Z99.81 Dependence on supplemental oxygen; Z92.21 Personal history of antineoplastic chemotherapy; Z88.8 Allergy status to other drugs, medicaments and biological substances; Z79.890 Hormone replacement therapy; Z79.82 Long term (current) use of aspirin; Z95.1 Presence of aortocoronary bypass graft; Z17.0 Estrogen receptor positive status [ER+]; Z86.0100 Personal history of colon polyps, unspecified; Z68.26 Body mass index [BMI] 26.0-26.9, adult; Z85.038 Personal history of other malignant neoplasm of large intestine; Z90.49 Acquired absence of other specified parts of digestive tract; Z87.01 Personal history of pneumonia (recurrent)
CPT/HCPCS: 88305; 32555; 51701; 71045; 74177; 74230; 76604; 80048; 80076; 81003; 81015; 82150; 82533; 82805; 82945; 82962; 83605; 83615; 83690; 83735; 83880; 83930; 83986; 84132; 84157; 84295; 84300; 84439; 84443; 84478; 84484; 85014; 85025; 85027; 86850; 86900; 86901; 86920; 87015; 87070; 87102; 87116; 87205; 88112; 89051; 92526; 92610; 92611; 93005; 93306; 93970; 96360; 96361; 97163; 97167; 97530; 97535; 99285; P9016; Q9967